=== PATIENT | female | born 1935 | race Caucasian/White ===

== ENCOUNTER 2019-11-13 00:46 | Observation (INO) | payer MEDICARE, BC ==
[2019-11-13] MEDS: Sodium Chloride 0.9% 10 ML Syringe FLUSH PRN ×3 (01:20→04:00)
[2019-11-13] MEDS ORDERED: Sodium Chloride 0.9% 500 ML IV ONE (01:39)
[2019-11-13] MEDS ORDERED: HYDROmorphone 2 MG/ML SDV IVPUSH ONE (01:39)
[2019-11-13] MEDS ORDERED: Ondansetron 4 MG/2 ML SDV IVPUSH ONE ×2 (01:40→03:16)
--- NOTE | 2019-11-13 01:45 | EDM.PDOC ---
ED HPI GENERAL MEDICAL PROBLEM - General Chief Complaint: Abdominal Pain Stated Complaint: STOMACH PAIN Time Seen by Provider: 11/13/19 01:40 Source of Information: Reports: Patient History Limitations: Reports: No Limitations - History of Present Illness INITIAL COMMENTS - FREE TEXT/NARRATIVE: Presents with abdominal pain and nausea x 3 days. Pain is mainly localized to the LLQ but present diffusely. She has had some diarrhea. Similar symptoms annually due diverticulitis. Prior surgical history includes Appendectomy and Cholecystectomy. Also complains headache, fatigue, neck pain, and muscle aches. The patient lives alone. Duration: Day(s): (3) Location: Reports: Abdomen Quality: Reports: Ache Severity: Moderate Abdomen Pain Score (Numeric/FACES): 8 - Related Data Allergies Allergy/AdvReac Type Severity Reaction Status Date / Time pneumococcal vaccine Allergy Hives Verified 11/13/19 01:15 [Pneumococcal Vaccine] Home Meds: Home Meds Diphenoxylate HCl/Atropine [Lomotil] 1 each PO QID PRN 11/02/13 [History] Zolpidem Tartrate 5 mg PO BEDTIME PRN 11/13/19 [History] predniSONE [Prednisone] 20 mg PO DAILY 11/13/19 [History] Past Medical History HEENT History: Reports: Cataract, Impaired Vision Cardiovascular History: Reports: High Cholesterol Gastrointestinal History: Reports: Diverticulosis, GERD, Irritable Bowel Syndrome Musculoskeletal History: Reports: Fibromyalgia, Other (See Below) Other Musculoskeletal History: Polymyalgia rheumatica - Past Surgical History HEENT Surgical History: Reports: Cataract Surgery GI Surgical History: Reports: Appendectomy, Cholecystectomy, Colonoscopy Social & Family History - Tobacco Use Smoking Status *Q: Never Smoker - Caffeine Use Caffeine Use: Reports: Coffee - Recreational Drug Use Recreational Drug Use: No ED ROS GENERAL - Review of Systems Review Of Systems: Comprehensive ROS is negative, except as noted in HPI. ED EXAM, GI/ABD - Physical Exam Exam: See Below Exam Limited By: No Limitations General Appearance: Alert, WD/WN, No Apparent Distress Eyes: Bilateral: EOMI (PERRLA 3mm) Nose: Normal Inspection Throat/Mouth: No Airway Compromise Head: Atraumatic, Normocephalic Neck: Supple Respiratory/Chest: No Respiratory Distress, Lungs Clear, Normal Breath Sounds Cardiovascular: Regular Rate, Rhythm, No Murmur GI/Abdominal Exam: Normal Bowel Sounds, Soft, No Distention, Guarding, Tender (LLQ) Back Exam: Full Range of Motion Neurological: Alert, Normal Cognition, No Motor/Sensory Deficits Skin Exam: Warm, Dry, Intact Course - Vital Signs Last Recorded V/S: Last Vital Signs Temp 36.6 C 11/13/19 00:55 Pulse 73 11/13/19 02:11 Resp 16 11/13/19 02:11 BP 114/48 L 11/13/19 02:11 Pulse Ox 95 11/13/19 02:11 - Orders/Labs/Meds Orders: Active Orders 24 hr Category Date Time Status Admission Status [Patient Status] [ADT] Routine ADT 11/13/19 03:21 Ordered Abdomen Pelvis w Cont [CT] Stat Exams 11/13/19 02:07 Taken UA W/MICROSCOPIC [URIN] Stat Lab 11/13/19 01:38 Ordered Piperacillin/Tazobactam [Zosyn] 3.375 gm Med 11/13/19 03:17 Active Sodium Chloride 0.9% [Normal Saline] 50 ml IV ONETIME Sodium Chloride 0.9% [Saline Flush] Med 11/13/19 01:20 Active 10 ml FLUSH ASDIRECTED PRN Medication Orders Piperacillin Sod/Tazobactam (Sod 3.375 gm/ Sodium Chloride) 50 mls @ 100 mls/hr IV ONETIME ONE Stop: 11/13/19 03:46 Sodium Chloride (Saline Flush) 10 ml FLUSH ASDIRECTED PRN PRN Reason: IV Use Last Admin: 11/13/19 01:20 Dose: 10 ml Documented by: CATE Labs: Laboratory Tests 11/13/19 11/13/19 11/13/19 Range/Units 01:48 01:48 01:48 WBC 12.5 H (4.5-12.0) X10-3/uL RBC 4.40 (3.23-5.20) x10(6)uL Hgb 13.0 (11.5-15.5) g/dL Hct 40.2 (30.0-51.3) % MCV 91.5 (80-96) fL MCH 29.6 (27.7-33.6) pg MCHC 32.4 (32.2-35.4) g/dL RDW 13.4 (11.5-15.5) % Plt Count 260 (125-369) X10(3)uL MPV 7.0 L (7.4-10.4) fL Neut % (Auto) 82.6 H (46-82) % Lymph % (Auto) 10.5 L (13-37) % Coffee % (Auto) 6.1 (4-12) % Eos % (Auto) 1 (1.0-5.0) % Baso % (Auto) 0 (0-2) % Neut # (Auto) 10.3 H (1.6-8.3) # Lymph # (Auto) 1.3 (0.6-5.0) # [place] # (Auto) 0.8 (0.0-1.3) # Eos # (Auto) 0.1 (0.0-0.8) # Baso # (Auto) 0.0 (0.0-0.2) # Sodium 137 (135-145) mmol/L Potassium 3.8 (3.5-5.3) mmol/L Chloride 102 (100-110) mmol/L Carbon Dioxide 29 (21-32) mmol/L BUN 15 (7-18) mg/dL Creatinine 1.0 (0.55-1.02) mg/dL Est Cr Clr Drug Dosing 33.88 mL/min Estimated GFR (MDRD) 53 L (>60) BUN/Creatinine Ratio 15.0 (9-20) Glucose 95 (80-116) mg/dL Calcium 8.7 (8.6-10.2) mg/dL Total Bilirubin 1.2 (0.1-1.3) mg/dL AST 15 (5-25) IU/L ALT 16 (12-36) U/L Alkaline Phosphatase 45 L (56-112) IU/L Total Protein 6.1 (6.0-8.0) g/dL Albumin 3.1 L (3.2-4.6) g/dL Globulin 3.0 g/dL Albumin/Globulin Ratio 1.0 Lipase 106 (73-393) U/L Meds: Medications Generic Name Dose Route Start Last Admin Trade Name Freq PRN Reason Stop Dose Admin Piperacillin Sod/Tazobactam 50 mls @ 100 mls/hr 11/13/19 03:17 Sod 3.375 gm/ Sodium Chloride IV 11/13/19 03:46 ONETIME ONE Sodium Chloride 10 ml 11/13/19 01:20 11/13/19 01:20 Saline Flush FLUSH 10 ml ASDIRECTED PRN Administration IV Use Discontinued Medications Generic Name Dose Route Start Last Admin Trade Name Dimitri PRN Reason Stop Dose Admin Hydromorphone HCl 0.5 mg 11/13/19 01:39 11/13/19 01:46 Dilaudid IVPUSH 11/13/19 01:40 0.5 mg ONETIME ONE Administration Sodium Chloride 500 mls @ 500 mls/hr 11/13/19 01:39 11/13/19 01:41 Normal Saline IV 11/13/19 02:38 500 mls/hr .BOLUS ONE Administration Iopamidol 75 ml 11/13/19 02:25 11/13/19 02:43 Isovue-370 (76%) IV 11/13/19 02:26 75 ml . DIRECTED ONE Administration Ondansetron HCl 4 mg 11/13/19 01:40 11/13/19 01:45 Zofran IVPUSH 11/13/19 01:41 4 mg ONETIME ONE Administration Ondansetron HCl 4 mg 11/13/19 03:16 Zofran IVPUSH 11/13/19 03:17 ONETIME ONE - Radiology Interpretation Free Text/Narrative:: CT abdomen and pelvis acquired with IV contrast. 75 cc Isovue 370 COMPARISON: None FINDINGS: Lower chest: Unremarkable. Liver: Unremarkable. Spleen: Unremarkable. Pancreas: Unremarkable. Gallbladder and bile ducts: Cholecystectomy. Inter and extrahepatic biliary ductal dilatation most likely related to reservoir effect. Kidneys: Unremarkable. Adrenal glands: Unremarkable. GI tract: Mild thickening and minimal pericolonic fat stranding adjacent to the distal descending colon worrisome for diverticulitis. Vascular structures: Unremarkable. Lymph nodes: Unremarkable. Miscellaneous: Unremarkable. No free air or significant free fluid. Pelvic Organs: Unremarkable. Bones: Unremarkable for age. IMPRESSION: Mild thickening and minimal pericolonic fat stranding adjacent to the distal descending colon worrisome for diverticulitis. Dictated by Reece Montanez MD @ 11/13/2019 2:59:40 AM Please note that all CT scans at this facility use dose modulation, iterative reconstruction, and/or weight-based dosing when appropriate to reduce radiation dose to as low as reasonably achievable. Dictated by: Reece Montanez MD @ 11/13/2019 02:59:48 - Re-Assessments/Exams Free Text/Narrative Re-Assessment/Exam: 11/13/19 03:22 Pain has improved, nausea persists. Departure - Departure Time of Disposition: 03:24 Disposition: Refer to Observation Condition: Fair Clinical Impression: Diverticulitis - Discharge Information Referrals: Baron Quiñones MD [Primary Care Provider] - Forms: ED Department Discharge Sepsis Event Note (ED) - Evaluation Sepsis Screening Result: No Definite Risk - Focused Exam Vital Signs: Vital Signs Temp Pulse Resp BP Pulse Ox 11/13/19 02:11 73 16 114/48 L 95 11/13/19 01:44 76 18 132/52 L 98 11/13/19 00:55 36.6 C 89 20 104/53 L 99 - My Orders Last 24 Hours: My Active Orders 11/13/19 01:20 Sodium Chloride 0.9% [Saline Flush] 10 ml FLUSH ASDIRECTED PRN 11/13/19 01:38 UA W/MICROSCOPIC [URIN] Stat 11/13/19 02:07 Abdomen Pelvis w Cont [CT] Stat 11/13/19 03:17 Piperacillin/Tazobactam [Zosyn] 3.375 gm Sodium Chloride 0.9% [Normal Saline] 50 ml IV ONETIME 11/13/19 03:21 Admission Status [Patient Status] [ADT] Routine - Assessment/Plan Last 24 Hours: My Active Orders 11/13/19 01:20 Sodium Chloride 0.9% [Saline Flush] 10 ml FLUSH ASDIRECTED PRN 11/13/19 01:38 UA W/MICROSCOPIC [URIN] Stat 11/13/19 02:07 Abdomen Pelvis w Cont [CT] Stat 11/13/19 03:17 Piperacillin/Tazobactam [Zosyn] 3.375 gm Sodium Chloride 0.9% [Normal Saline] 50 ml IV ONETIME 11/13/19 03:21 Admission Status [Patient Status] [ADT] Routine
[2019-11-13] MEDS ORDERED: Iopamidol 755 Mg/ML 100 ML Bottle IV ONE (02:25)
[2019-11-13] MEDS ORDERED: Piperacillin/Tazobactam 3.375 GM in Sodium Chloride 0.9% 50 ML IV ONE (03:17)
[2019-11-13] MEDS: Sodium Chloride 0.9% 1,000 ML IV SCH ×2 (04:54→16:52)
[2019-11-13] MEDS ORDERED: HYDROmorphone 2 MG/ML SDV IVPUSH PRN (05:30)
[2019-11-13] MEDS ORDERED: Piperacillin/Tazobactam 3.375 GM in Sodium Chloride 0.9% 50 ML IV SCH (09:00)
[2019-11-13] MEDS: predniSONE 20 MG Tab PO SCH (09:17)
[2019-11-13] MEDS: Enoxaparin 40 MG/0.4 ML Syringe SUBCUT SCH (09:17)
[2019-11-13] MEDS: Pantoprazole 40 MG Vial IVPUSH SCH (09:18)
[2019-11-13] MEDS: Piperacillin/Tazobactam 2.25 GM in Sodium Chloride 0.9% 50 ML IV SCH ×3 (09:18→20:47)
[2019-11-13] MEDS ORDERED: Ondansetron 4 MG/2 ML SDV IV PRN (09:30)
[2019-11-13] MEDS ORDERED: hydrOXYzine HCl 25 MG Tab PO PRN (09:34)
--- NOTE | 2019-11-13 13:40 | PCM.HP.2 ---
H&P History of Present Illness - General Date of Service: 11/13/19 Admit Problem/Dx: Admission Diagnosis/Problem Admission Diagnosis/Problem Diverticulitis Source of Information: Patient, EMS Notes Reviewed - History of Present Illness Initial Comments - Free Text/Narative: Radha presented overnight for 3 day history of LLQ abdominal pain, and nausea, but denies vomiting, diarrhea. States she tends to be constipated. History of Diverticulitis annually, usually when she is in [place] for the [facility], has never had an abscess as far as she is aware. She did have surgery once where they "rearranged her intestines" but states they didn't take anything out. Hx of appendectomy and cholecystectomy. No fevers, chills, cough, shortness of breath, chest pain, dysuria, frequency, hematuria or bloody/black stools. 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 Insomnia on Melatonin, Magnesium and Zolpidem but states not helping. Lives alone in her own home in [place]. Abdomen Pain Score (Numeric/FACES): 2 - Related Data Allergies/Adverse Reactions: Allergies Allergy/AdvReac Type Severity Reaction Status Date / Time pneumococcal vaccine Allergy Hives Verified 11/13/19 01:15 [Pneumococcal Vaccine] Home Medications: Home Meds Magnesium Oxide 400 mg PO BEDTIME 11/13/19 [History] Melatonin 10 mg PO BEDTIME 11/13/19 [History] Zolpidem Tartrate 5 mg PO BEDTIME PRN 11/13/19 [History] predniSONE [Prednisone] 20 mg PO DAILY 11/13/19 [History] Past Medical History HEENT History: Reports: Cataract, Impaired Vision Cardiovascular History: Reports: High Cholesterol Gastrointestinal History: Reports: Diverticulosis, GERD, Irritable Bowel Syndrome Musculoskeletal History: Reports: Fibromyalgia, Other (See Below) Other Musculoskeletal History: Polymyalgia rheumatica - Past Surgical History HEENT Surgical History: Reports: Cataract Surgery GI Surgical History: Reports: Appendectomy, Cholecystectomy, Colonoscopy Social & Family History - Family History Family Medical History: Noncontributory - Tobacco Use Smoking Status *Q: Never Smoker Second Hand Smoke Exposure: No - Caffeine Use Caffeine Use: Reports: Coffee - Recreational Drug Use Recreational Drug Use: No H&P Review of Systems - Review of Systems: Review Of Systems: Comprehensive ROS is negative, except as noted in HPI. Exam - Exam Exam: See Below - Vital Signs Vital Signs: Last Vital Signs Temp 97.9 F 11/13/19 08:00 Pulse 74 11/13/19 08:00 Resp 16 11/13/19 08:00 BP 117/59 L 11/13/19 08:00 Pulse Ox 99 11/13/19 08:00 Weight: 145 lb 1.6 oz - Exam General: Alert, Oriented, Cooperative. No: Mild Distress HEENT: PERRLA, Conjunctiva Clear, Mucosa Moist & Platinum, Glasses Neck: Trachea Midline Lungs: Clear to Auscultation, Normal Respiratory Effort Cardiovascular: Regular Rate, Regular Rhythm GI/Abdominal Exam: Normal Bowel Sounds, Soft, Non-Tender, No Distention. No: Guarding, Rigid, Rebound (Female) Exam: Deferred Rectal (Female) Exam: Deferred Extremities: No Pedal Edema Peripheral Pulses: 2+: Radial (L), Radial (R) Skin: Warm, Dry, Intact - Patient Data Lab Results Last 24 hrs: Laboratory Results - last 24 hr 11/13/19 11/13/19 11/13/19 Range/Units 01:48 01:48 01:48 WBC 12.5 H (4.5-12.0) X10-3/uL RBC 4.40 (3.23-5.20) x10(6)uL Hgb 13.0 (11.5-15.5) g/dL Hct 40.2 (30.0-51.3) % MCV 91.5 (80-96) fL MCH 29.6 (27.7-33.6) pg MCHC 32.4 (32.2-35.4) g/dL RDW 13.4 (11.5-15.5) % Plt Count 260 (125-369) X10(3)uL MPV 7.0 L (7.4-10.4) fL Neut % (Auto) 82.6 H (46-82) % Lymph % (Auto) 10.5 L (13-37) % [place] % (Auto) 6.1 (4-12) % Eos % (Auto) 1 (1.0-5.0) % Baso % (Auto) 0 (0-2) % Neut # (Auto) 10.3 H (1.6-8.3) # Lymph # (Auto) 1.3 (0.6-5.0) # [place] # (Auto) 0.8 (0.0-1.3) # Eos # (Auto) 0.1 (0.0-0.8) # Baso # (Auto) 0.0 (0.0-0.2) # Sodium 137 (135-145) mmol/L Potassium 3.8 (3.5-5.3) mmol/L Chloride 102 (100-110) mmol/L Carbon Dioxide 29 (21-32) mmol/L BUN 15 (7-18) mg/dL Creatinine 1.0 (0.55-1.02) mg/dL Est Cr Clr Drug Dosing 33.88 mL/min Estimated GFR (MDRD) 53 L (>60) BUN/Creatinine Ratio 15.0 (9-20) Glucose 95 (80-116) mg/dL Calcium 8.7 (8.6-10.2) mg/dL Total Bilirubin 1.2 (0.1-1.3) mg/dL AST 15 (5-25) IU/L ALT 16 (12-36) U/L Alkaline Phosphatase 45 L (56-112) IU/L Total Protein 6.1 (6.0-8.0) g/dL Albumin 3.1 L (3.2-4.6) g/dL Globulin 3.0 g/dL Albumin/Globulin Ratio 1.0 Lipase 106 (73-393) U/L Urine Color (YELLOW) Urine Appearance (CLEAR) Urine pH (5.0-6.5) Ur Specific [place] (1.010-1.025) Urine Protein (NEGATIVE) mg/dL Urine Glucose (UA) (NORMAL) mg/dL Urine Ketones (NEGATIVE) mg/dL Urine Occult Blood (NEGATIVE) Urine Nitrite (NEGATIVE) Urine Bilirubin (NEGATIVE) Urine Urobilinogen (NEGATIVE) mg/dL Ur Leukocyte Esterase (NEGATIVE) Urine RBC (0-5) Urine WBC (0-5) Ur Squamous Epith Cells (NS,R,O) Urine Bacteria (NS) 11/13/19 Range/Units 08:09 WBC (4.5-12.0) X10-3/uL RBC (3.23-5.20) x10(6)uL Hgb (11.5-15.5) g/dL Hct (30.0-51.3) % MCV (80-96) fL MCH (27.7-33.6) pg MCHC (32.2-35.4) g/dL RDW (11.5-15.5) % Plt Count (125-369) X10(3)uL MPV (7.4-10.4) fL Neut % (Auto) (46-82) % Lymph % (Auto) (13-37) % [place] % (Auto) (4-12) % Eos % (Auto) (1.0-5.0) % Baso % (Auto) (0-2) % Neut # (Auto) (1.6-8.3) # Lymph # (Auto) (0.6-5.0) # [place] # (Auto) (0.0-1.3) # Eos # (Auto) (0.0-0.8) # Baso # (Auto) (0.0-0.2) # Sodium (135-145) mmol/L Potassium (3.5-5.3) mmol/L Chloride (100-110) mmol/L Carbon Dioxide (21-32) mmol/L BUN (7-18) mg/dL Creatinine (0.55-1.02) mg/dL Est Cr Clr Drug Dosing mL/min Estimated GFR (MDRD) (>60) BUN/Creatinine Ratio (9-20) Glucose (80-116) mg/dL Calcium (8.6-10.2) mg/dL Total Bilirubin (0.1-1.3) mg/dL AST (5-25) IU/L ALT (12-36) U/L Alkaline Phosphatase (56-112) IU/L Total Protein (6.0-8.0) g/dL Albumin (3.2-4.6) g/dL Globulin g/dL Albumin/Globulin Ratio Lipase (73-393) U/L Urine Color Yellow (YELLOW) Urine Appearance Clear (CLEAR) Urine pH 6.5 (5.0-6.5) Ur Specific [place] 1.015 (1.010-1.025) Urine Protein Trace (NEGATIVE) mg/dL Urine Glucose (UA) Normal (NORMAL) mg/dL Urine Ketones 15 H (NEGATIVE) mg/dL Urine Occult Blood Moderate H (NEGATIVE) Urine Nitrite Negative (NEGATIVE) Urine Bilirubin Negative (NEGATIVE) Urine Urobilinogen Normal (NEGATIVE) mg/dL Ur Leukocyte Esterase Small H (NEGATIVE) Urine RBC 5-10 H (0-5) Urine WBC 0-5 (0-5) Ur Squamous Epith Cells Few H (NS,R,O) Urine Bacteria Rare H (NS) Result Diagrams: 11/13/19 01:48 11/13/19 01:48 Sepsis Event Note - Evaluation Sepsis Screening Result: No Definite Risk - Focused Exam Vital Signs: Vital Signs Temp Pulse Resp BP Pulse Ox Pulse Ox 11/13/19 08:00 97.9 F 74 16 117/59 L 99 11/13/19 03:47 97.6 F 74 16 112/51 L 97 11/13/19 03:45 97.6 F 74 16 112/51 L 97 11/13/19 03:28 97 11/13/19 02:11 73 16 114/48 L 95 11/13/19 01:44 76 18 132/52 L 98 Date Exam was Performed: 11/13/19 Time Exam was Performed: 13:49 *Q Meaningful Use (ADM) - VTE Risk Assess *Q Each Risk Factor Represents 3 Points: Age 75 Years or Greater Total Score 3 Point Risk Factors: 3 - Problem List (1) Diverticulitis SNOMED Code(s): 901164454 ICD Code: K57.92 - DVTRCLI OF INTEST, PART UNSP, W/O PERF OR ABSCESS W/O BLEED Status: Acute Current Visit: Yes (2) Polymyalgia rheumatica SNOMED Code(s): 40910308 ICD Code: M35.3 - POLYMYALGIA RHEUMATICA Status: Chronic Current Visit: Yes (3) Insomnia SNOMED Code(s): 868963762 ICD Code: G47.00 - INSOMNIA, UNSPECIFIED Status: Chronic Current Visit: Yes (4) Cystocele SNOMED Code(s): 302726303 ICD Code: [id number] - Status: Chronic Current Visit: Yes (5) DVT prophylaxis SNOMED Code(s): 767547376, 583756484 ICD Code: Z29.9 - ENCOUNTER FOR PROPHYLACTIC MEASURES, UNSPECIFIED Status: Acute Current Visit: Yes Problem List Initiated/Reviewed/Updated: Yes Orders Last 24hrs: Active Orders 24 hr Category Date Time Status Admission Status [Patient Status] [ADT] Routine ADT 11/13/19 03:21 Active Ambulate [RC] PER UNIT ROUTINE Care 11/13/19 03:29 Active Antiembolic Devices [RC] .Routine Care 11/13/19 08:15 Active Height and Weight [RC] 06 Care 11/13/19 03:28 Active Intake and Output [RC] QSHIFT Care 11/13/19 03:29 Active Notify Provider Vital Signs [RC] ASDIRECTED Care 11/13/19 03:29 Active Oxygen Therapy [RC] .PRN Care 11/13/19 03:28 Active VTE/DVT Education [RC] 08 Care 11/13/19 03:28 Active Vital Signs [RC] QSHIFT Care 11/13/19 03:28 Active Full Liquid Diet [DIET] Diet 11/13/19 Breakfast Active Abdomen Pelvis w Cont [CT] Stat Exams 11/13/19 02:07 Taken BASIC METABOLIC PANEL,BMP [CHEM] Routine Lab 11/14/19 06:00 Ordered CBC WITH AUTO DIFF [HEME] Routine Lab 11/14/19 06:00 Ordered Enoxaparin [Lovenox] Med 11/13/19 09:00 Active 40 mg SUBCUT DAILY HYDROmorphone [Dilaudid] Med 11/13/19 05:30 Active 0.5 mg IVPUSH Q4H PRN Magnesium Oxide Med 11/13/19 21:00 Active 400 mg PO BEDTIME Melatonin Med 11/13/19 21:00 Active 9 mg PO BEDTIME Ondansetron [Zofran] Med 11/13/19 09:30 Active 4 mg IV Q8H PRN Pantoprazole [ProTONIX IV] Med 11/13/19 09:00 Active 40 mg IVPUSH DAILY Piperacillin/Tazobactam [Zosyn] 2.25 gm Med 11/13/19 09:00 Active Sodium Chloride 0.9% [Normal Saline] 50 ml IV Q6H Saccharomyces Boulardii [Florastor] Med 11/13/19 21:00 Active 250 mg PO BID Sodium Chloride 0.9% [Normal Saline] 1,000 ml Med 11/13/19 03:30 Active IV ASDIRECTED Sodium Chloride 0.9% [Saline Flush] Med 11/13/19 01:20 Active 10 ml FLUSH ASDIRECTED PRN hydrOXYzine HCL [Atarax] Med 11/13/19 21:00 Active 25 mg PO BEDTIME hydrOXYzine HCL [Atarax] Med 11/13/19 09:34 Active 25 mg PO BEDTIME PRN predniSONE Med 11/13/19 09:00 Active 20 mg PO DAILY Antiembolic Hose [OM.PC] Routine Oth 11/13/19 08:15 Ordered Resuscitation Status Routine Resus Stat 11/13/19 03:28 Ordered Medication Orders Enoxaparin Sodium (Lovenox) 40 mg SUBCUT DAILY [facility] Last Admin: 11/13/19 09:17 Dose: 40 mg Documented by: DAVIDE Hydromorphone HCl (Dilaudid) 0.5 mg IVPUSH Q4H PRN PRN Reason: Pain (severe 7-10) Hydroxyzine HCl (Atarax) 25 mg PO BEDTIME FELIPA Hydroxyzine HCl (Atarax) 25 mg PO BEDTIME PRN PRN Reason: SLEEP Sodium Chloride (Normal Saline) 1,000 mls @ 100 mls/hr IV ASDIRECTED [facility] Last Admin: 11/13/19 04:54 Dose: 100 mls/hr Documented by: SVTELANA Piperacillin Sod/Tazobactam (Sod 2.25 gm/ Sodium Chloride) 50 mls @ 100 mls/hr IV Q6H [facility] Last Admin: 11/13/19 09:18 Dose: 100 mls/hr Documented by: DAVIDE Magnesium Oxide (Magnesium Oxide) 400 mg PO BEDTIME [facility] Melatonin (Melatonin) 9 mg PO BEDTIME FELIPA Ondansetron HCl (Zofran) 4 mg IV Q8H PRN PRN Reason: Nausea/Vomiting Pantoprazole Sodium (Protonix Iv) 40 mg IVPUSH DAILY [facility] Last Admin: 11/13/19 09:18 Dose: 40 mg Documented by: DAVIDE Prednisone (Prednisone) 20 mg PO DAILY [facility] Last Admin: 11/13/19 09:17 Dose: 20 mg Documented by: DAVIDE Saccharomyces Boulardii (Florastor) 250 mg PO BID [facility] Sodium Chloride (Saline Flush) 10 ml FLUSH ASDIRECTED PRN PRN Reason: IV Use Last Admin: 11/13/19 04:00 Dose: 10 ml Documented by: Admin: 11/13/19 03:22 Dose: 10 ml Documented by: Admin: 07/31/20 01:20 Dose: 10 ml Documented by: CATE Assessment/Plan Comment:: 1. Admit for IV Zosyn 2.275 g IV q6h, repeat labs tomorrow. Pain improved this morning. 2. Hydroxyzine 25 mg po hs, with 25 mg po hs as needed if still not sleeping. Continue Melatonin, Magnesium. Hold Zolpidem since she states doesn't really help her. 3. Regular diet, advance as tolerated. 4. Lovenox 40 mg SQ daily, TEDs BLE. 5. DNR/DNI. 6. Adjust treatments as necessary. 7. Continue home medication, prednisone. - Mortality Measure Prognosis:: Good
[2019-11-13] MEDS: Saccharomyces Boulardii (Probiotic) 250 MG Cap PO SCH (20:47)
[2019-11-13] MEDS ORDERED: Magnesium Oxide 400 MG Tab PO SCH (21:00)
[2019-11-13] MEDS ORDERED: hydrOXYzine HCl 25 MG Tab PO SCH (21:00)
[2019-11-13] MEDS ORDERED: Melatonin 3 MG Tab PO SCH (21:00)
[2019-11-14] MEDS: Piperacillin/Tazobactam 2.25 GM in Sodium Chloride 0.9% 50 ML IV SCH ×2 (03:14→09:00)
[2019-11-14] MEDS: Sodium Chloride 0.9% 1,000 ML IV SCH (04:11)
[2019-11-14] MEDS: Saccharomyces Boulardii (Probiotic) 250 MG Cap PO SCH (08:48)
[2019-11-14] MEDS: Pantoprazole 40 MG Vial IVPUSH SCH (08:49)
[2019-11-14] MEDS: Enoxaparin 40 MG/0.4 ML Syringe SUBCUT SCH (08:49)
[2019-11-14] MEDS: predniSONE 20 MG Tab PO SCH (08:49)
--- NOTE | 2019-11-14 12:33 | PCM.DCSUM1 ---
Discharge Summary - Hospital Course HPI Initial Comments: Radha presented overnight for 3 day history of LLQ abdominal pain, and nausea, but denies vomiting, diarrhea. States she tends to be constipated. History of Diverticulitis annually, usually when she is in [place] for the winter, has never had an abscess as far as she is aware. She did have surgery once where they "rearranged her intestines" but states they didn't take anything out. Hx of appendectomy and cholecystectomy. No fevers, chills, cough, shortness of breath, chest pain, dysuria, frequency, hematuria or bloody/black stools. 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 Insomnia on Melatonin, Magnesium and Zolpidem but states not helping. Lives alone in her own home in [place]. - Discharge Data Discharge Date: 11/14/19 Discharge Disposition: Home, Self-Care 01 Condition: Good - Referral to Home Health Primary Care Physician: Baron Quiñones MD - Discharge Diagnosis/Problem(s) (1) Diverticulitis SNOMED Code(s): 012495909 ICD Code: K57.92 - DVTRCLI OF INTEST, PART UNSP, W/O PERF OR ABSCESS W/O B LEED Status: Acute (2) Polymyalgia rheumatica SNOMED Code(s): 21456403 ICD Code: M35.3 - POLYMYALGIA RHEUMATICA Status: Chronic (3) Insomnia SNOMED Code(s): 268700057 ICD Code: G47.00 - INSOMNIA, UNSPECIFIED Status: Chronic (4) Cystocele SNOMED Code(s): 433267556 ICD Code: HZN3684 - Status: Chronic (5) DVT prophylaxis SNOMED Code(s): 172699026, 853657037 ICD Code: Z29.9 - ENCOUNTER FOR PROPHYLACTIC MEASURES, UNSPECIFIED Status: Acute - Patient Summary/Data Hospital Course: Started on Zosyn, received 6 doses during her stay, Florastor was also added. WBC improved from 12.5 down to 6.8, clinically feeling better. Diet was advanced from full liquids to regular yesterday, tolerated with no increased pain or nausea. Zolpidem was discontinued as she stated it really wasn't work for her anymore. Started Hydroxyzine 25 mg at bedtime, slept well last night, had dry mouth but she wasn't sure if that was new or not. Not feeling groggy or hungover this morning, which she stated she has with Zolpidem. Will send home with 14 days of Hydroxyzine and follow up with her PCP on how her sleep is on this medication. Will go home on Augmentin bid for 9 more days of treatment for Diverticulitis. Discharged in stable condition. - Patient Instructions Diet: Regular Diet as Tolerated Activity: As Tolerated Driving: May Drive Today Showering/Bathing: May Shower Notify Provider of: Fever, Increased Pain, Nausea and/or Vomiting Other/Special Instructions: Follow up with Dr Quiñones in 7-10 days to make sure diverticulitis is resolved and to reassess how well the new sleep med ication, Hydroxyzine is working for you. Zolpidem was discontinued. - Discharge Plan *PRESCRIPTION DRUG MONITORING PROGRAM REVIEWED*: No *COPY OF PRESCRIPTION DRUG MONITORING REPORT IN PATIENT JAIME: No Prescriptions/Med Rec: Amoxicillin/Clavulanate K [Augmentin 875-125 MG] 1 tab PO BID 9 Days #18 tablet Saccharomyces Boulardii [Florastor] 250 mg PO BID 30 Days #60 cap hydrOXYzine HCL [hydrOXYzine] 25 mg PO BEDTIME 14 Days #14 tablet Home Medications: Home Meds Magnesium Oxide 400 mg PO BEDTIME 11/13/19 [History] Melatonin 10 mg PO BEDTIME 11/13/19 [History] predniSONE [Prednisone] 20 mg PO DAILY 11/13/19 [History] Amoxicillin/Clavulanate K [Augmentin 875-125 MG] 1 tab PO BID 9 Days #18 tablet 11/14/19 [Rx] Saccharomyces Boulardii [Florastor] 250 mg PO BID 30 Days #60 cap 11/14/19 [Rx] hydrOXYzine HCL [hydrOXYzine] 25 mg PO BEDTIME 14 Days #14 tablet 11/14/19 [Rx] Oxygen Therapy Mode: Room Air Patient Handouts: Diverticulitis, [id number], Diverticulitis Forms: ED Department Discharge Referrals: Braon Quiñones MD [Primary Care Provider] - - Discharge Summary/Plan Comment DC Time >30 min.: No - General Info Date of Service: 11/14/19 Subjective Update: Radha states she is feeling much better, no pain in left side today. Ate regular diet last night and this morning with no increased pain or nausea. No fevers overnight, would like to go home. Functional Status: Reports: Pain Controlled, Tolerating Diet, Ambulating - Patient Data Vitals - Most Recent: Last Vital Signs Temp 97.4 F 11/14/19 08:00 Pulse 70 11/14/19 08:00 Resp 16 11/14/19 08:00 BP 121/62 11/14/19 08:00 Pulse Ox 98 11/14/19 08:00 Weight - Most Recent: 149 lb 3.2 oz I&O - Last 24 hours: Intake & Output 11/13/19 11/14/19 11/14/19 22:59 06:59 14:59 Intake Total 3225 857 Output Total 800 700 Balance 2425 157 Lab Results - Last 24 hrs: Laboratory Results - last 24 hr 11/14/19 11/14/19 Range/Units 06:25 06:25 WBC 6.8 (4.5-12.0) X10-3/uL RBC 3.61 (3.23-5.20) x10(6)uL Hgb 10.9 L (11.5-15.5) g/dL Hct 32.9 (30.0-51.3) % MCV 91.1 (80-96) fL MCH 30.4 (27.7-33.6) pg MCHC 33.3 (32.2-35.4) g/dL RDW 13.5 (11.5-15.5) % Plt Count 198 (125-369) X10(3)uL MPV 7.4 (7.4-10.4) fL Neut % (Auto) 68.4 (46-82) % Lymph % (Auto) 20.6 (13-37) % [place] % (Auto) 9.2 (4-12) % Eos % (Auto) 1 (1.0-5.0) % Baso % (Auto) 0 (0-2) % Neut # (Auto) 4.7 (1.6-8.3) # Lymph # (Auto) 1.4 (0.6-5.0) # [place] # (Auto) 0.6 (0.0-1.3) # Eos # (Auto) 0.1 (0.0-0.8) # Baso # (Auto) 0.0 (0.0-0.2) # Sodium 141 (135-145) mmol/L Potassium 3.7 (3.5-5.3) mmol/L Chloride 109 D (100-110) mmol/L Carbon Dioxide 26 (21-32) mmol/L BUN 10 (7-18) mg/dL Creatinine 1.0 (0.55-1.02) mg/dL Est Cr Clr Drug Dosing 33.88 mL/min Estimated GFR (MDRD) 53 L (>60) BUN/Creatinine Ratio 10.0 (9-20) Glucose 84 (80-116) mg/dL Calcium 8.1 L (8.6-10.2) mg/dL Med Orders - Current: Current Medications Discontinued Medications Enoxaparin Sodium (Lovenox) 40 mg SUBCUT DAILY [facility] Last Admin: 11/14/19 08:49 Dose: 40 mg Documented by: Hydromorphone HCl (Dilaudid) 0.5 mg IVPUSH ONETIME ONE Stop: 11/13/19 01:40 Last Admin: 11/13/19 01:46 Dose: 0.5 mg Documented by: Hydromorphone HCl (Dilaudid) 0.5 mg IVPUSH Q4H PRN PRN Reason: Pain (severe 7-10) Hydroxyzine HCl (Atarax) 25 mg PO BEDTIME [facility] Last Admin: 11/13/19 20:47 Dose: 25 mg Documented by: Hydroxyzine HCl (Atarax) 25 mg PO BEDTIME PRN PRN Reason: SLEEP Sodium Chloride (Normal Saline) 500 mls @ 500 mls/hr IV .BOLUS ONE Stop: 11/13/19 02:38 Last Admin: 11/13/19 01:41 Dose: 500 mls/hr Documented by: Piperacillin Sod/Tazobactam (Sod 3.375 gm/ Sodium Chloride) 50 mls @ 100 mls/hr IV ONETIME ONE Stop: 11/13/19 03:46 Last Admin: 11/13/19 03:22 Dose: 100 mls/hr Documented by: Sodium Chloride (Normal Saline) 1,000 mls @ 100 mls/hr IV ASDIRECTED [facility] Last Admin: 11/14/19 04:11 Dose: 100 mls/hr Documented by: Piperacillin Sod/Tazobactam (Sod 3.375 gm/ Sodium Chloride) 50 mls @ 100 mls/hr IV Q6H [facility] Piperacillin Sod/Tazobactam (Sod 2.25 gm/ Sodium Chloride) 50 mls @ 100 mls/hr IV Q6H [facility] Last Admin: 11/14/19 09:00 Dose: 100 mls/hr Documented by: Iopamidol (Isovue-370 (76%)) 75 ml IV . DIRECTED ONE Stop: 11/13/19 02:26 Last Admin: 11/13/19 02:43 Dose: 75 ml Documented by: Magnesium Oxide (Magnesium Oxide) 400 mg PO BEDTIME [facility] Last Admin: 11/13/19 20:47 Dose: 400 mg Documented by: Melatonin (Melatonin) 9 mg PO BEDTIME [facility] Last Admin: 11/13/19 20:47 Dose: 9 mg Documented by: Ondansetron HCl (Zofran) 4 mg IVPUSH ONETIME ONE Stop: 11/13/19 01:41 Last Admin: 11/13/19 01:45 Dose: 4 mg Documented by: Ondansetron HCl (Zofran) 4 mg IVPUSH ONETIME ONE Stop: 11/13/19 03:17 Last Admin: 11/13/19 03:21 Dose: 4 mg Documented by: Ondansetron HCl (Zofran) 4 mg IV Q8H PRN PRN Reason: Nausea/Vomiting Pantoprazole Sodium (Protonix Iv) 40 mg IVPUSH DAILY [facility] Last Admin: 11/14/19 08:49 Dose: 40 mg Documented by: Prednisone (Prednisone) 20 mg PO DAILY [facility] Last Admin: 11/14/19 08:49 Dose: 20 mg Documented by: Saccharomyces Boulardii (Florastor) 250 mg PO BID [facility] Last Admin: 11/14/19 08:48 Dose: 250 mg Documented by: Sodium Chloride (Saline Flush) 10 ml FLUSH ASDIRECTED PRN PRN Reason: IV Use Last Admin: 11/13/19 04:00 Dose: 10 ml Documented by: - Exam General: Reports: Alert, Oriented, Cooperative, No Acute Distress Lungs: Reports: Clear to Auscultation, Normal Respiratory Effort Cardiovascular: Reports: Regular Rate, Regular Rhythm GI/Abdominal Exam: Normal Bowel Sounds, Soft, No Distention, Tender (Mild TTP in LLQ). No: Guarding, Rigid, Rebound Extremities: No Pedal Edema
== END 2019-11-14 11:40 | disposition home or self-care (01) ==
LOC: FB.ED 00:46 → FB.MS 03:26
PROVIDERS: ADMIT Emergency Medicine; ATTEND Family Medicine
DX: K57.92 Diverticulitis of intestine, part unspecified, without perforation or abscess without bleeding (principal); K21.9 Gastro-esophageal reflux disease without esophagitis; M35.3 Polymyalgia rheumatica; G47.00 Insomnia, unspecified; E78.00 Pure hypercholesterolemia, unspecified; N81.10 Cystocele, unspecified; Z66 Do not resuscitate; Z88.7 Allergy status to serum and vaccine; Z79.899 Other long term (current) drug therapy
CPT/HCPCS: 36415; 74177; 80048; 80053; 81001; 83690; 85025; 96361; 96374; 96375; 96376; 99285; A9270; C9113; J1170; J1650; J2405; J2543; J7030; J7040; J7050; J7512; Q9967; 96365; 96366; 96372; 99284; G0378

== ENCOUNTER 2020-07-15 12:49 | Inpatient (IN) | payer MEDICARE, BC ==
[2020-07-15] MEDS ORDERED: Sodium Chloride 0.9% 1,000 ML IV ONE ×2 (13:27→14:08)
[2020-07-15] MEDS ORDERED: Ketorolac 30 MG/ML SDV IVPUSH ONE (13:28)
[2020-07-15] MEDS ORDERED: Ondansetron 4 MG/2 ML SDV IVPUSH ONE (13:30)
[2020-07-15] MEDS ORDERED: Iopamidol 755 Mg/ML 75 ML Bottle IV ONE (14:08)
[2020-07-15] MEDS: Piperacillin/Tazobactam 3.375 GM in Sodium Chloride 0.9% 50 ML IV SCH ×2 (15:29→21:22)
--- NOTE | 2020-07-15 15:42 | EDM.PDOC ---
ED HPI GENERAL MEDICAL PROBLEM - General Chief Complaint: Abdominal Pain Stated Complaint: ??? 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 (see below) Other Treatments [employer] SUPERVISOR: Abx-Cipro given to her by ANKIT for flare ups per pt report - Related Data Allergies Allergy/AdvReac Type Severity Reaction Status Date / Time pneumococcal vaccine Allergy Hives Verified 07/15/20 13:30 [Pneumococcal Vaccine] Home Meds: Home Meds Magnesium Oxide 400 mg PO BEDTIME 11/13/19 [History] Melatonin 10 mg PO BEDTIME 11/13/19 [History] predniSONE [Prednisone] 20 mg PO DAILY 11/13/19 [History] Saccharomyces Boulardii [Florastor] 250 mg PO BID 30 Days #60 cap 11/14/19 [Rx] Multivitamin [Multivitamins] 1 each PO DAILY 07/15/20 [History] Past Medical History HEENT History: Reports: Cataract, Impaired Vision Cardiovascular History: Reports: High Cholesterol Respiratory History: Reports: None Gastrointestinal History: Reports: Diverticulosis, GERD, Irritable Bowel Syndrome MASH GRINDER History: Reports: None Musculoskeletal History: Reports: Fibromyalgia, Other (See Below) Other Musculoskeletal History: Polymyalgia rheumatica Neurological History: Reports: None Psychiatric History: Reports: None Hematologic History: Reports: None Immunologic History: Reports: None Dermatologic History: Reports: None - Past Surgical History HEENT Surgical History: Reports: Cataract Surgery GI Surgical History: Reports: Appendectomy, Cholecystectomy, Colonoscopy Endocrine Surgical History: Reports: None Social & Family History - Family History Family Medical History: No Pertinent Family History HEENT: Reports: None - Tobacco Use Tobacco Use Status *Q: Unknown Ever Used Tobacco - Caffeine Use Caffeine Use: Reports: None - Recreational Drug Use Recreational Drug Use: No ED ROS GENERAL - Review of Systems Review Of Systems: See Below Constitutional: Reports: No Symptoms HEENT: Reports: No Symptoms Respiratory: Reports: No Symptoms Cardiovascular: Reports: No Symptoms Endocrine: Reports: No Symptoms GI/Abdominal: Reports: Abdominal Pain. Denies: Nausea, Vomiting : Reports: No Symptoms Musculoskeletal: Reports: No Symptoms Skin: Reports: No Symptoms Neurological: Reports: No Symptoms Psychiatric: Reports: No Symptoms Hematologic/Lymphatic: Reports: No Symptoms Immunologic: Reports: No Symptoms ED EXAM, GI/ABD - Physical Exam Exam: See Below Exam Limited By: No Limitations General Appearance: Alert, WD/WN, No Apparent Distress, Other (very, pleasant, cooperative) Ears: Hearing Grossly Normal Nose: Normal Inspection Throat/Mouth: Normal Voice, No Airway Compromise Head: Atraumatic, Normocephalic Neck: Normal Inspection, Supple, Non-Tender, Full Range of Motion. No: Lymphadenopathy (R), Lymphadenopathy (L) Respiratory/Chest: Lungs Clear, Normal Breath Sounds, Chest Non-Tender Cardiovascular: Regular Rate, Rhythm, No Edema, Other (2/6 AMY at LSB) GI/Abdominal Exam: Soft, Other (1+ tender at LLQ to deep palpation at mid inguinal line, no CVAT b/l) Back Exam: Normal Inspection, Full Range of Motion. No: CVA Tenderness (R), CVA Tenderness (L) Extremities: Normal Inspection, Normal Range of Motion, Non-Tender, No Pedal Edema, Other (turgor wnl) Neurological: Alert, Oriented, CN II-XII Intact, Normal Cognition, No Motor/Sensory Deficits Psychiatric: Normal Affect, Normal Mood Skin Exam: Warm, Dry, Intact, Normal Color, No Rash Lymphatic: No Adenopathy Course - Vital Signs Last Recorded V/S: Last Vital Signs Temp 36.7 C 07/15/20 13:15 Pulse 94 07/15/20 13:15 Resp 16 07/15/20 13:15 BP 134/47 L 07/15/20 13:15 Pulse Ox 100 07/15/20 13:15 - Orders/Labs/Meds Orders: Active Orders 24 hr Category Date Time Status EKG Documentation Completion [RC] ASDIRECTED Care 07/15/20 14:10 Ordered Abdomen Pelvis w Cont [CT] Stat Exams 07/15/20 13:29 Ordered Piperacillin/Tazobactam [Zosyn] 3.375 gm Med 07/15/20 15:30 Ordered Sodium Chloride 0.9% [Normal Saline] 50 ml IV Q6H EKG 12 Lead [EK] Routine Ther 07/15/20 14:08 Ordered Medication Orders Piperacillin Sod/Tazobactam (Sod 3.375 gm/ Sodium Chloride) 50 mls @ 100 mls/hr IV Q6H [facility] Last Admin: 07/15/20 15:29 Dose: 100 mls/hr Documented by: SORAYA Labs: Laboratory Tests 07/15/20 07/15/20 07/15/20 Range/Units 13:04 13:04 13:04 WBC 16.6 H (3.0-10.3) x10-3/uL RBC 4.44 (3.60-5.20) x10(6)uL Hgb 13.9 (11.4-15.5) g/dL Hct 42.0 (34.2-48.2) % MCV 94.6 (76.7-100.5) fL MCH 31.3 (23.9-33.9) pg MCHC 33.1 (31.9-34.8) g/dL RDW 13.5 (12.3-16.5) % Plt Count 293 (151-488) x10(3)uL MPV 8.1 (7.1-12.4) fL Neut % (Auto) 82.4 H (30.8-76.2) % Lymph % (Auto) 8.5 L (18.4-52.1) % [place] % (Auto) 8.2 (4.4-15.7) % Eos % (Auto) 0.6 (0.6-8.1) % Baso % (Auto) 0.3 (0.2-1.5) % Neut # (Auto) 13.7 H (1.5-6.3) x10-3/uL Lymph # (Auto) 1.4 (1.0-4.4) x10-3/uL [place] # (Auto) 1.4 H (0.3-1.0) x10-3/uL Eos # (Auto) 0.1 (0.0-0.8) x10-3/uL Baso # (Auto) 0.0 (0.0-0.1) x10-3/uL Sodium 134 L (135-145) mmol/L Potassium 4.0 (3.5-5.3) mmol/L Chloride 99 L D (100-110) mmol/L Carbon Dioxide 27 (21-32) mmol/L BUN 21 H D (7-18) mg/dL Creatinine 1.0 (0.55-1.02) mg/dL Est Cr Clr Drug Dosing TNP Estimated GFR (MDRD) 53 L (>60) BUN/Creatinine Ratio 21.0 H (9-20) Glucose 121 H (80-116) mg/dL Calcium 8.5 L (8.6-10.2) mg/dL Total Bilirubin 1.1 (0.1-1.3) mg/dL AST 17 D (5-25) IU/L ALT 35 D (12-36) U/L Alkaline Phosphatase 114 H (56-112) IU/L C-Reactive Protein 6.5 H* (0.5-0.9) mg/dL Total Protein 6.6 (6.0-8.0) g/dL Albumin 3.2 (3.2-4.6) g/dL Globulin 3.4 g/dL Albumin/Globulin Ratio 0.9 Urine Color (YELLOW) Urine Appearance (CLEAR) Urine pH (5.0-6.5) Ur Specific Amanda (1.010-1.025) Urine Protein (NEGATIVE) mg/dL Urine Glucose (UA) (NORMAL) mg/dL Urine Ketones (NEGATIVE) mg/dL Urine Occult Blood (NEGATIVE) Urine Nitrite (NEGATIVE) Urine Bilirubin (NEGATIVE) Urine Urobilinogen (NEGATIVE) mg/dL Ur Leukocyte Esterase (NEGATIVE) Urine RBC (0-5) Urine WBC (0-5) Ur Squamous Epith Cells (NS,R,O) Urine Bacteria (NS) 07/15/20 Range/Units 15:00 WBC (3.0-10.3) x10-3/uL RBC (3.60-5.20) x10(6)uL Hgb (11.4-15.5) g/dL Hct (34.2-48.2) % MCV (76.7-100.5) fL MCH (23.9-33.9) pg MCHC (31.9-34.8) g/dL RDW (12.3-16.5) % Plt Count (151-488) x10(3)uL MPV (7.1-12.4) fL Neut % (Auto) (30.8-76.2) % Lymph % (Auto) (18.4-52.1) % [place] % (Auto) (4.4-15.7) % Eos % (Auto) (0.6-8.1) % Baso % (Auto) (0.2-1.5) % Neut # (Auto) (1.5-6.3) x10-3/uL Lymph # (Auto) (1.0-4.4) x10-3/uL [place] # (Auto) (0.3-1.0) x10-3/uL Eos # (Auto) (0.0-0.8) x10-3/uL Baso # (Auto) (0.0-0.1) x10-3/uL Sodium (135-145) mmol/L Potassium (3.5-5.3) mmol/L Chloride (100-110) mmol/L Carbon Dioxide (21-32) mmol/L BUN (7-18) mg/dL Creatinine (0.55-1.02) mg/dL Est Cr Clr Drug Dosing Estimated GFR (MDRD) (>60) BUN/Creatinine Ratio (9-20) Glucose (80-116) mg/dL Calcium (8.6-10.2) mg/dL Total Bilirubin (0.1-1.3) mg/dL AST (5-25) IU/L ALT (12-36) U/L Alkaline Phosphatase (56-112) IU/L C-Reactive Protein (0.5-0.9) mg/dL Total Protein (6.0-8.0) g/dL Albumin (3.2-4.6) g/dL Globulin g/dL Albumin/Globulin Ratio Urine Color Yellow (YELLOW) Urine Appearance Clear (CLEAR) Urine pH 7.0 H (5.0-6.5) Ur Specific [place] 1.005 L (1.010-1.025) Urine Protein Negative (NEGATIVE) mg/dL Urine Glucose (UA) Normal (NORMAL) mg/dL Urine Ketones Negative (NEGATIVE) mg/dL Urine Occult Blood Moderate H (NEGATIVE) Urine Nitrite Negative (NEGATIVE) Urine Bilirubin Negative (NEGATIVE) Urine Urobilinogen Normal (NEGATIVE) mg/dL Ur Leukocyte Esterase Negative (NEGATIVE) Urine RBC 0-5 (0-5) Urine WBC 0-5 (0-5) Ur Squamous Epith Cells Few H (NS,R,O) Urine Bacteria Few H (NS) Meds: Medications Generic Name Dose Route Start Last Admin Trade Name Freq PRN Reason Stop Dose Admin Piperacillin Sod/Tazobactam 50 mls @ 100 mls/hr 07/15/20 15:30 07/15/20 15:29 Sod 3.375 gm/ Sodium Chloride IV 100 mls/hr Q6H [facility] Administration Discontinued Medications Generic Name Dose Route Start Last Admin Trade Name Freq PRN Reason Stop Dose Admin Sodium Chloride 1,000 mls @ 999 mls/hr 07/15/20 13:27 07/15/20 14:00 Normal Saline IV 07/15/20 14:27 999 mls/hr .BOLUS ONE Administration Sodium Chloride 1,000 mls @ 999 mls/hr 07/15/20 14:08 07/15/20 15:26 Normal Saline IV 07/15/20 15:08 Not Given .BOLUS ONE Iopamidol 75 ml 07/15/20 14:08 07/15/20 14:11 Iopamidol 755 Mg/Ml 75 Ml Bottle IV 07/15/20 14:09 75 ml ASDIRECTED ONE Administration Ketorolac Tromethamine 15 mg 07/15/20 13:28 07/15/20 13:56 Ketorolac 30 Mg/Ml Sdv IVPUSH 07/15/20 13:29 15 mg ONETIME ONE Administration Ondansetron HCl 4 mg 07/15/20 13:30 07/15/20 13:53 Ondansetron 4 Mg/2 Ml Sdv IVPUSH 07/15/20 13:31 4 mg ONETIME ONE Administration Departure - Departure Time of Disposition: 15:40 Disposition: Admitted As Inpatient 66 Condition: Good Clinical Impression: Acute peritonitis, Acute diverticulitis, Elevated WBC count, Elevated C- reactive protein (CRP) - Discharge Information *PRESCRIPTION DRUG MONITORING PROGRAM REVIEWED*: Not Applicable *COPY OF PRESCRIPTION DRUG MONITORING REPORT IN PATIENT JAIME: Not Applicable Sepsis Event Note (ED) - Evaluation Sepsis Screening Result: No Definite Risk - Focused Exam Vital Signs: Vital Signs Temp Pulse Resp BP Pulse Ox 04/02/21 13:15 36.7 C 94 16 134/47 L 100 - My Orders Last 24 Hours: My Active Orders 07/15/20 13:29 Abdomen Pelvis w Cont [CT] Stat 07/15/20 14:08 EKG 12 Lead [EK] Routine 07/15/20 14:10 EKG Documentation Completion [RC] ASDIRECTED 07/15/20 15:30 Piperacillin/Tazobactam [Zosyn] 3.375 gm Sodium Chloride 0.9% [Normal Saline] 50 ml IV Q6H - Assessment/Plan Last 24 Hours: My Active Orders 07/15/20 13:29 Abdomen Pelvis w Cont [CT] Stat 07/15/20 14:08 EKG 12 Lead [EK] Routine 07/15/20 14:10 EKG Documentation Completion [RC] ASDIRECTED 07/15/20 15:30 Piperacillin/Tazobactam [Zosyn] 3.375 gm Sodium Chloride 0.9% [Normal Saline] 50 ml IV Q6H
--- NOTE | 2020-07-15 16:34 | CT ---
INDICATION: Left lower quadrant pain x2 days. History of diverticulitis descending colon. CT ABDOMEN AND PELVIS WITH CONTRAST: Spiral 3.75 mm axial sections were obtained through the abdomen and pelvis with 75 mL Isovue-370 (at 2 mL/second) with sagittal and coronal reconstructions 07/15/20 and compared with 11/13/19. Total exam DLP was 395.31 mGy-cm. The heart appears to be near the upper limits of normal in size. A definite active infiltrate or effusion was not identified. A moderate sized fixed hiatal hernia is noted, appearing slightly more prominent than on the previous study. The liver appeared normal. There are clips at the cystic duct and absence of the gallbladder, compatible with cholecystectomy. The adrenal glands, spleen, somewhat fatty-replaced pancreas, and common bile duct appeared normal. The appendix is absent, compatible with history of its removal. No evidence of free air or definite bowel obstruction was identified. No evidence of inguinal or ventral hernia was seen. Calcifications are noted in the abdominal aorta, splenic, iliac, and femoral arteries. Thickening of the wall of the urinary bladder is noted, which may be on the basis of cystitis and should be correlated clinically. Descending colon diverticulosis is noted with resolution of a previous distal descending colon diverticulitis. Diverticulosis in the sigmoid colon is more prominent than in the descending with fat stranding in the distal sigmoid and rectosigmoid colon and this fat stranding extends inferiorly and is generally pericolonic, compatible with diverticulitis with peritonitis over a fairly significant portion of the sigmoid/rectosigmoid colon. As mentioned above, no free air was seen. Also, there is no definite abscess formation. Otherwise, no organomegaly, mass lesions, or free fluid collections were identified in the abdomen or pelvis. There are some fluid-filled loops of bowel of questionable significance, possibly related to fluid intact. These are not dilated and no mechanically obstructive process is strongly suggested. No retroperitoneal mass was identified. IMPRESSION: 1. Sigmoid and rectosigmoid diverticulitis with pericolonic peritonitis, moderately extensive, but no significant abscess or free air seen. 2. Thickening of the wall of the urinary bladder which could be on the basis of cystitis and should be correlated clinically. 3. Post appendectomy and cholecystectomy. 4. ASD. Report was called to Dr. Garcia at 1502 hours 07/15/20. [facility]
[2020-07-15] MEDS ORDERED: Ondansetron 4 MG Tab.DIS PO PRN (17:15)
[2020-07-15] MEDS ORDERED: Acetaminophen/HYDROcodone 325-5 MG Tab PO PRN (17:15)
--- NOTE | 2020-07-15 17:25 | PCM.HP.2 ---
H&P History of Present Illness - General Date of Service: 07/15/20 Admit Problem/Dx: Admission Diagnosis/Problem Admission Diagnosis/Problem Diverticulitis Source of Information: Patient History Limitations: Reports: No Limitations - History of Present Illness Initial Comments - Free Text/Narative: This is an 84-year-old female patient presents to the ER with lower quadrant abdominal pain. Patient's had many bouts of diverticulitis in the past. She had one episode of vomiting. She says she vomits when she has a lot of pain. She denies constipation, diarrhea, blood in her stool. The patient states the pain is sharp and left lower quadrant. She denies fevers or chills. She denies runny nose, sore throat, cough, chest pain. She denies urinary symptoms or vaginal symptoms. Abdominal Pain Score (Numeric/FACES): 3 - Related Data Allergies/Adverse Reactions: Allergies Allergy/AdvReac Type Severity Reaction Status Date / Time pneumococcal vaccine Allergy Hives Verified 07/15/20 13:30 [Pneumococcal Vaccine] Home Medications: Home Meds Magnesium Oxide 400 mg PO BEDTIME 11/13/19 [History] Melatonin 10 mg PO BEDTIME 11/13/19 [History] predniSONE [Prednisone] 20 mg PO DAILY 11/13/19 [History] Multivitamin [Multivitamins] 1 each PO DAILY 07/15/20 [History] Saccharomyces Boulardii [Florastor] 250 mg PO BEDTIME 07/15/20 [History] Past Medical History HEENT History: Reports: Cataract, Impaired Vision Cardiovascular History: Reports: High Cholesterol Respiratory History: Reports: None Gastrointestinal History: Reports: Diverticulosis, GERD, Irritable Bowel Syndrome [employer] History: Reports: None Musculoskeletal History: Reports: Fibromyalgia, Other (See Below) Other Musculoskeletal History: Polymyalgia rheumatica Neurological History: Reports: None Psychiatric History: Reports: None Hematologic History: Reports: None Immunologic History: Reports: None Dermatologic History: Reports: None - Infectious Disease History Infectious Disease History: Reports: Chicken Pox, Measles, Mumps - Past Surgical History HEENT Surgical History: Reports: Cataract Surgery GI Surgical History: Reports: Appendectomy, Cholecystectomy, Colonoscopy Endocrine Surgical History: Reports: None Social & Family History - Family History Family Medical History: No Pertinent Family History HEENT: Reports: None Psychiatric: Reports: Other (See Below) (Alzheimer's disease-brother) - Tobacco Use Tobacco Use Status *Q: Never Tobacco User Second Hand Smoke Exposure: No - Caffeine Use Caffeine Use: Reports: Coffee - Recreational Drug Use Recreational Drug Use: No H&P Review of Systems - Review of Systems: Review Of Systems: See Below General: Reports: Weakness HEENT: Reports: No Symptoms Pulmonary: Reports: No Symptoms Cardiovascular: Reports: No Symptoms Gastrointestinal: Reports: Abdominal Pain, Vomiting Genitourinary: Reports: No Symptoms Musculoskeletal: Reports: No Symptoms Skin: Reports: No Symptoms Psychiatric: Reports: No Symptoms Neurological: Reports: No Symptoms Hematologic/Lymphatic: Reports: No Symptoms Immunologic: Reports: No Symptoms Exam - Exam Exam: See Below - Vital Signs Vital Signs: Last Vital Signs Temp 98.1 F 07/15/20 16:40 Pulse 86 07/15/20 16:40 Resp 16 07/15/20 16:40 BP 134/63 07/15/20 16:40 Pulse Ox 97 07/15/20 16:40 Weight: 148 lb 3.2 oz - Exam General: Alert, Oriented, Cooperative HEENT: PERRLA, Conjunctiva Clear, Hearing Intact, Mucosa Moist & [place], Posterior Pharynx Clear, TMs Clear Neck: Supple, Trachea Midline, 2 Lungs: Clear to Auscultation, Normal Respiratory Effort Cardiovascular: Regular Rate, Regular Rhythm. No: Systolic Murmur GI/Abdominal Exam: Soft, Tender (Left lower quadrant). No: Guarding, Rigid, Rebound, Mass Extremities: Normal Inspection, Non-Tender, No Pedal Edema Skin: Warm, Dry, Intact Neurological: Normal Speech, Normal Tone Neuro Extensive - Mental Status: Alert, Oriented x3, Normal Mood/Affect, Normal Cognition, Memory Intact Psychiatric: Alert, Normal Affect, Normal Mood - Patient Data Lab Results Last 24 hrs: Laboratory Results - last 24 hr 07/15/20 07/15/20 07/15/20 Range/Units 13:04 13:04 13:04 WBC 16.6 H (3.0-10.3) x10-3/uL RBC 4.44 (3.60-5.20) x10(6)uL Hgb 13.9 (11.4-15.5) g/dL Hct 42.0 (34.2-48.2) % MCV 94.6 (76.7-100.5) fL MCH 31.3 (23.9-33.9) pg MCHC 33.1 (31.9-34.8) g/dL RDW 13.5 (12.3-16.5) % Plt Count 293 (151-488) x10(3)uL MPV 8.1 (7.1-12.4) fL Neut % (Auto) 82.4 H (30.8-76.2) % Lymph % (Auto) 8.5 L (18.4-52.1) % [place] % (Auto) 8.2 (4.4-15.7) % Eos % (Auto) 0.6 (0.6-8.1) % Baso % (Auto) 0.3 (0.2-1.5) % Neut # (Auto) 13.7 H (1.5-6.3) x10-3/uL Lymph # (Auto) 1.4 (1.0-4.4) x10-3/uL [place] # (Auto) 1.4 H (0.3-1.0) x10-3/uL Eos # (Auto) 0.1 (0.0-0.8) x10-3/uL Baso # (Auto) 0.0 (0.0-0.1) x10-3/uL Sodium 134 L (135-145) mmol/L Potassium 4.0 (3.5-5.3) mmol/L Chloride 99 L D (100-110) mmol/L Carbon Dioxide 27 (21-32) mmol/L BUN 21 H D (7-18) mg/dL Creatinine 1.0 (0.55-1.02) mg/dL Est Cr Clr Drug Dosing TNP Estimated GFR (MDRD) 53 L (>60) BUN/Creatinine Ratio 21.0 H (9-20) Glucose 121 H (80-116) mg/dL Calcium 8.5 L (8.6-10.2) mg/dL Total Bilirubin 1.1 (0.1-1.3) mg/dL AST 17 D (5-25) IU/L ALT 35 D (12-36) U/L Alkaline Phosphatase 114 H (56-112) IU/L C-Reactive Protein 6.5 H* (0.5-0.9) mg/dL Total Protein 6.6 (6.0-8.0) g/dL Albumin 3.2 (3.2-4.6) g/dL Globulin 3.4 g/dL Albumin/Globulin Ratio 0.9 Urine Color (YELLOW) Urine Appearance (CLEAR) Urine pH (5.0-6.5) Ur Specific [place] (1.010-1.025) Urine Protein (NEGATIVE) mg/dL Urine Glucose (UA) (NORMAL) mg/dL Urine Ketones (NEGATIVE) mg/dL Urine Occult Blood (NEGATIVE) Urine Nitrite (NEGATIVE) Urine Bilirubin (NEGATIVE) Urine Urobilinogen (NEGATIVE) mg/dL Ur Leukocyte Esterase (NEGATIVE) Urine RBC (0-5) Urine WBC (0-5) Ur Squamous Epith Cells (NS,R,O) Urine Bacteria (NS) SARS-CoV-2 RNA (MARVIN) (NEGATIVE) 07/15/20 07/15/20 Range/Units 15:00 15:40 WBC (3.0-10.3) x10-3/uL RBC (3.60-5.20) x10(6)uL Hgb (11.4-15.5) g/dL Hct (34.2-48.2) % MCV (76.7-100.5) fL MCH (23.9-33.9) pg MCHC (31.9-34.8) g/dL RDW (12.3-16.5) % Plt Count (151-488) x10(3)uL MPV (7.1-12.4) fL Neut % (Auto) (30.8-76.2) % Lymph % (Auto) (18.4-52.1) % [place] % (Auto) (4.4-15.7) % Eos % (Auto) (0.6-8.1) % Baso % (Auto) (0.2-1.5) % Neut # (Auto) (1.5-6.3) x10-3/uL Lymph # (Auto) (1.0-4.4) x10-3/uL [place] # (Auto) (0.3-1.0) x10-3/uL Eos # (Auto) (0.0-0.8) x10-3/uL Baso # (Auto) (0.0-0.1) x10-3/uL Sodium (135-145) mmol/L Potassium (3.5-5.3) mmol/L Chloride (100-110) mmol/L Carbon Dioxide (21-32) mmol/L BUN (7-18) mg/dL Creatinine (0.55-1.02) mg/dL Est Cr Clr Drug Dosing Estimated GFR (MDRD) (>60) BUN/Creatinine Ratio (9-20) Glucose (80-116) mg/dL Calcium (8.6-10.2) mg/dL Total Bilirubin (0.1-1.3) mg/dL AST (5-25) IU/L ALT (12-36) U/L Alkaline Phosphatase (56-112) IU/L C-Reactive Protein (0.5-0.9) mg/dL Total Protein (6.0-8.0) g/dL Albumin (3.2-4.6) g/dL Globulin g/dL Albumin/Globulin Ratio Urine Color Yellow (YELLOW) Urine Appearance Clear (CLEAR) Urine pH 7.0 H (5.0-6.5) Ur Specific [place] 1.005 L (1.010-1.025) Urine Protein Negative (NEGATIVE) mg/dL Urine Glucose (UA) Normal (NORMAL) mg/dL Urine Ketones Negative (NEGATIVE) mg/dL Urine Occult Blood Moderate H (NEGATIVE) Urine Nitrite Negative (NEGATIVE) Urine Bilirubin Negative (NEGATIVE) Urine Urobilinogen Normal (NEGATIVE) mg/dL Ur Leukocyte Esterase Negative (NEGATIVE) Urine RBC 0-5 (0-5) Urine WBC 0-5 (0-5) Ur Squamous Epith Cells Few H (NS,R,O) Urine Bacteria Few H (NS) SARS-CoV-2 RNA (MARVIN) Negative (NEGATIVE) Result Diagrams: 07/15/20 13:04 07/15/20 13:04 Sepsis Event Note - Evaluation Sepsis Screening Result: No Definite Risk - Focused Exam Vital Signs: Vital Signs Temp Pulse Resp BP Pulse Ox 07/15/20 16:40 98.1 F 86 16 134/63 97 07/15/20 15:23 85 16 124/51 L 99 07/15/20 13:15 98.1 F 94 16 134/47 L 100 - Problem List (1) Palliative care status SNOMED Code(s): 441319087 ICD Code: Z51.5 - ENCOUNTER FOR PALLIATIVE CARE Status: Acute Current Visit: Yes (2) Acute diverticulitis SNOMED Code(s): 127481331 ICD Code: K57.92 - DVTRCLI OF INTEST, PART UNSP, W/O PERF OR ABSCESS W/O BLEED Status: Acute Current Visit: Yes (3) Acute peritonitis SNOMED Code(s): 57609424 ICD Code: K65.0 - GENERALIZED (ACUTE) PERITONITIS Status: Acute Current Visit: Yes (4) Elevated C-reactive protein (CRP) SNOMED Code(s): 920498936268362 ICD Code: R79.82 - ELEVATED C-REACTIVE PROTEIN (CRP) Status: Acute Current Visit: Yes Problem List Initiated/Reviewed/Updated: Yes Orders Last 24hrs: Active Orders 24 hr Category Date Time Status Patient Status [ADT] Routine ADT 07/15/20 17:15 Ordered EKG Documentation Completion [RC] ASDIRECTED Care 07/15/20 14:10 Active Height and Weight [RC] DAILY Care 07/15/20 17:15 Ordered Intake and Output [RC] QSHIFT Care 07/15/20 17:16 Ordered Oxygen Therapy [RC] PRN Care 07/15/20 17:15 Ordered Up With Assistance [RC] ASDIRECTED Care 07/15/20 17:15 Ordered VTE/DVT Education [RC] Per Unit Routine Care 07/15/20 17:15 Ordered Vital Signs [RC] QSHIFT Care 07/15/20 17:15 Ordered Full Liquid Diet [DIET] Diet 07/15/20 Dinner Ordered CBC WITH AUTO DIFF [HEME] AM Lab 07/16/20 05:11 Ordered COMPREHENSIVE METABOLIC PN,CMP [CHEM] AM Lab 07/16/20 05:11 Ordered UA W/O MICROSCOPIC [URIN] AM Lab 07/16/20 05:11 Ordered Acetaminophen/HYDROcodone [[place] 325-5 MG] Med 07/15/20 17:15 Ordered 1 tab PO Q4H PRN Enoxaparin [Lovenox] Med 07/15/20 17:15 Ordered 30 mg SUBCUT Q24H Lactated Ringers [Ringers, Lactated] 1,000 ml Med 07/15/20 17:15 Ordered IV ASDIRECTED Magnesium Oxide Med 07/15/20 21:00 Ordered 400 mg PO BEDTIME Melatonin [Melatonin] Med 07/15/20 21:00 Ordered 10 mg PO BEDTIME Multivitamin [Multivitamins] Med 07/16/20 09:00 Ordered 1 each PO DAILY Ondansetron [Zofran ODT] Med 07/15/20 17:15 Ordered 4 mg PO Q4H PRN Piperacillin/Tazobactam [Zosyn] 3.375 gm Med 07/15/20 15:30 Active Sodium Chloride 0.9% [Normal Saline] 50 ml IV Q6H Saccharomyces Boulardii [Florastor] Med 07/15/20 21:00 Ordered 250 mg PO BEDTIME Sodium Chloride 0.9% [Saline Flush] Med 07/15/20 17:15 Ordered 10 ml FLUSH ASDIRECTED PRN predniSONE Med 07/16/20 09:00 Ordered 20 mg PO DAILY Peripheral IV Insertion Adult [OM.PC] Routine Oth 07/15/20 17:15 Ordered Sequential Compression Device [OM.PC] Per Unit Routine Oth 07/15/20 17:17 Ordered Resuscitation Status Routine Resus Stat 07/15/20 17:15 Ordered EKG 12 Lead [EK] Routine Ther 07/15/20 14:08 Ordered Medication Orders Hydrocodone Bitart/Acetaminophen (Acetaminophen/Hydrocodone 325-5 Mg Tab) 1 tab PO Q4H PRN PRN Reason: Pain (moderate 4-6) Enoxaparin Sodium (Enoxaparin 30 Mg/0.3 Ml Syringe) 30 mg SUBCUT Q24H FELIPA Piperacillin Sod/Tazobactam (Sod 3.375 gm/ Sodium Chloride) 50 mls @ 100 mls/hr IV Q6H FELIPA Last Admin: 07/15/20 15:29 Dose: 100 mls/hr Documented by: SORAYA Lactated Ringer's (Ringers, Lactated) 1,000 mls @ 100 mls/hr IV ASDIRECTED FELIPA Magnesium Oxide (Magnesium Oxide 400 Mg Tab) 400 mg PO BEDTIME FELIPA Non-Formulary Medication (Melatonin [Melatonin]) 10 mg PO BEDTIME FELIPA Non-Formulary Medication (Multivitamin [Multivitamins]) 1 each PO DAILY FELIPA Ondansetron HCl (Ondansetron 4 Mg Tab.Dis) 4 mg PO Q4H PRN PRN Reason: nausea, able to take PO Prednisone (Prednisone 10 Mg Tab) 20 mg PO DAILY [facility] Saccharomyces Boulardii (Saccharomyces Boulardii (Probiotic) 250 Mg Cap) 250 mg PO BEDTIME FELIPA Sodium Chloride (Sodium Chloride 0.9% 10 Ml Syringe) 10 ml FLUSH ASDIRECTED PRN PRN Reason: Keep Vein Open Assessment/Plan Comment:: 1. Admit for admission. 2. Zosyn IV every 6 hours 3. [place] 5/325 one every 4-6 hours p.m. for pain 4. Diet full liquids 5. Activity up with assist 6. Lovenox and SCD for clot prophylaxis 7. Reviewed CT scan and labs. Repeat CBC, CMP, UA with microinvasion a.m. 8. Discuss CODE STATUS. Patient wants to be a DO NOT RESUSCITATE. - Mortality Measure Prognosis:: Good
[2020-07-15] MEDS: Lactated Ringers 1,000 ML IV SCH (17:56)
[2020-07-15] MEDS: Sodium Chloride 0.9% 10 ML Syringe FLUSH PRN ×2 (17:56→21:59)
[2020-07-15] MEDS ORDERED: Enoxaparin 40 MG/0.4 ML Syringe SUBCUT SCH (18:00)
[2020-07-15] MEDS ORDERED: Saccharomyces Boulardii (Probiotic) 250 MG Cap PO SCH (21:00)
[2020-07-15] MEDS ORDERED: Melatonin 3 MG Tab PO SCH (21:00)
[2020-07-15] MEDS ORDERED: Non-Formulary Medication 1 Each (Melatonin [Melatonin] 10 MG Tablet) PO SCH (21:00)
[2020-07-15] MEDS ORDERED: Magnesium Oxide 400 MG Tab PO SCH (21:00)
[2020-07-16] MEDS: Piperacillin/Tazobactam 3.375 GM in Sodium Chloride 0.9% 50 ML IV SCH ×2 (03:21→08:40)
[2020-07-16] MEDS: Sodium Chloride 0.9% 10 ML Syringe FLUSH PRN (03:22)
[2020-07-16] MEDS: Lactated Ringers 1,000 ML IV SCH (04:01)
--- NOTE | 2020-07-16 08:23 | PCM.PN ---
- General Info Date of Service: 07/16/20 Admission Dx/Problem (Free Text): The patient states her abdominal pain in the lower quadrant is much better today. She doesn't have much of an appetite but she is drinking plenty of fluids denies fevers, chills. Still little bit of weakness. She's not moved her bowels at this time. - Patient Data Vitals - Most Recent: Last Vital Signs Temp 98.2 F 07/16/20 07:20 Pulse 78 07/16/20 07:20 Resp 16 07/16/20 07:20 BP 111/52 L 07/16/20 07:20 Pulse Ox 97 07/16/20 07:20 Weight - Most Recent: 148 lb 3.2 oz I&O - Last 24 Hours: Intake & Output 07/15/20 07/16/20 07/16/20 22:59 06:59 14:59 Intake Total 425 730 Output Total 650 800 Balance -225 -70 Lab Results Last 24 Hours: Laboratory Results - last 24 hr 07/15/20 07/15/20 07/15/20 Range/Units 13:04 13:04 13:04 WBC 16.6 H (3.0-10.3) x10-3/uL RBC 4.44 (3.60-5.20) x10(6)uL Hgb 13.9 (11.4-15.5) g/dL Hct 42.0 (34.2-48.2) % MCV 94.6 (76.7-100.5) fL MCH 31.3 (23.9-33.9) pg MCHC 33.1 (31.9-34.8) g/dL RDW 13.5 (12.3-16.5) % Plt Count 293 (151-488) x10(3)uL MPV 8.1 (7.1-12.4) fL Neut % (Auto) 82.4 H (30.8-76.2) % Lymph % (Auto) 8.5 L (18.4-52.1) % [place] % (Auto) 8.2 (4.4-15.7) % Eos % (Auto) 0.6 (0.6-8.1) % Baso % (Auto) 0.3 (0.2-1.5) % Neut # (Auto) 13.7 H (1.5-6.3) x10-3/uL Lymph # (Auto) 1.4 (1.0-4.4) x10-3/uL [place] # (Auto) 1.4 H (0.3-1.0) x10-3/uL Eos # (Auto) 0.1 (0.0-0.8) x10-3/uL Baso # (Auto) 0.0 (0.0-0.1) x10-3/uL Sodium 134 L (135-145) mmol/L Potassium 4.0 (3.5-5.3) mmol/L Chloride 99 L D (100-110) mmol/L Carbon Dioxide 27 (21-32) mmol/L BUN 21 H D (7-18) mg/dL Creatinine 1.0 (0.55-1.02) mg/dL Est Cr Clr Drug Dosing TNP Estimated GFR (MDRD) 53 L (>60) BUN/Creatinine Ratio 21.0 H (9-20) Glucose 121 H (80-116) mg/dL Calcium 8.5 L (8.6-10.2) mg/dL Total Bilirubin 1.1 (0.1-1.3) mg/dL AST 17 D (5-25) IU/L ALT 35 D (12-36) U/L Alkaline Phosphatase 114 H (56-112) IU/L C-Reactive Protein 6.5 H* (0.5-0.9) mg/dL Total Protein 6.6 (6.0-8.0) g/dL Albumin 3.2 (3.2-4.6) g/dL Globulin 3.4 g/dL Albumin/Globulin Ratio 0.9 Urine Color (YELLOW) Urine Appearance (CLEAR) Urine pH (5.0-6.5) Ur Specific [place] (1.010-1.025) Urine Protein (NEGATIVE) mg/dL Urine Glucose (UA) (NORMAL) mg/dL Urine Ketones (NEGATIVE) mg/dL Urine Occult Blood (NEGATIVE) Urine Nitrite (NEGATIVE) Urine Bilirubin (NEGATIVE) Urine Urobilinogen (NEGATIVE) mg/dL Ur Leukocyte Esterase (NEGATIVE) Urine RBC (0-5) Urine WBC (0-5) Ur Squamous Epith Cells (NS,R,O) Urine Bacteria (NS) SARS-CoV-2 RNA (MARVIN) (NEGATIVE) 07/15/20 07/15/20 07/16/20 Range/Units 15:00 15:40 06:20 WBC (3.0-10.3) x10-3/uL RBC (3.60-5.20) x10(6)uL Hgb (11.4-15.5) g/dL Hct (34.2-48.2) % MCV (76.7-100.5) fL MCH (23.9-33.9) pg MCHC (31.9-34.8) g/dL RDW (12.3-16.5) % Plt Count (151-488) x10(3)uL MPV (7.1-12.4) fL Neut % (Auto) (30.8-76.2) % Lymph % (Auto) (18.4-52.1) % [place] % (Auto) (4.4-15.7) % Eos % (Auto) (0.6-8.1) % Baso % (Auto) (0.2-1.5) % Neut # (Auto) (1.5-6.3) x10-3/uL Lymph # (Auto) (1.0-4.4) x10-3/uL [place] # (Auto) (0.3-1.0) x10-3/uL Eos # (Auto) (0.0-0.8) x10-3/uL Baso # (Auto) (0.0-0.1) x10-3/uL Sodium (135-145) mmol/L Potassium (3.5-5.3) mmol/L Chloride (100-110) mmol/L Carbon Dioxide (21-32) mmol/L BUN (7-18) mg/dL Creatinine (0.55-1.02) mg/dL Est Cr Clr Drug Dosing Estimated GFR (MDRD) (>60) BUN/Creatinine Ratio (9-20) Glucose (80-116) mg/dL Calcium (8.6-10.2) mg/dL Total Bilirubin (0.1-1.3) mg/dL AST (5-25) IU/L ALT (12-36) U/L Alkaline Phosphatase (56-112) IU/L C-Reactive Protein (0.5-0.9) mg/dL Total Protein (6.0-8.0) g/dL Albumin (3.2-4.6) g/dL Globulin g/dL Albumin/Globulin Ratio Urine Color Yellow Yellow (YELLOW) Urine Appearance Clear Clear (CLEAR) Urine pH 7.0 H 7.0 H (5.0-6.5) Ur Specific [place] 1.005 L 1.005 L (1.010-1.025) Urine Protein Negative Negative (NEGATIVE) mg/dL Urine Glucose (UA) Normal Normal (NORMAL) mg/dL Urine Ketones Negative Negative (NEGATIVE) mg/dL Urine Occult Blood Moderate H Moderate H (NEGATIVE) Urine Nitrite Negative Negative (NEGATIVE) Urine Bilirubin Negative Negative (NEGATIVE) Urine Urobilinogen Normal Normal (NEGATIVE) mg/dL Ur Leukocyte Esterase Negative Small H (NEGATIVE) Urine RBC 0-5 (0-5) Urine WBC 0-5 (0-5) Ur Squamous Epith Cells Few H (NS,R,O) Urine Bacteria Few H (NS) SARS-CoV-2 RNA (MARVIN) Negative (NEGATIVE) 07/16/20 07/16/20 Range/Units 06:28 06:28 WBC 9.8 (3.0-10.3) x10-3/uL RBC 4.02 (3.60-5.20) x10(6)uL Hgb 12.6 (11.4-15.5) g/dL Hct 37.9 (34.2-48.2) % MCV 94.2 (76.7-100.5) fL MCH 31.3 (23.9-33.9) pg MCHC 33.2 (31.9-34.8) g/dL RDW 13.7 (12.3-16.5) % Plt Count 238 (151-488) x10(3)uL MPV 7.8 (7.1-12.4) fL Neut % (Auto) 70.3 (30.8-76.2) % Lymph % (Auto) 17.6 L (18.4-52.1) % [place] % (Auto) 9.1 (4.4-15.7) % Eos % (Auto) 2.1 (0.6-8.1) % Baso % (Auto) 0.9 (0.2-1.5) % Neut # (Auto) 6.9 H (1.5-6.3) x10-3/uL Lymph # (Auto) 1.7 (1.0-4.4) x10-3/uL [place] # (Auto) 0.9 (0.3-1.0) x10-3/uL Eos # (Auto) 0.2 (0.0-0.8) x10-3/uL Baso # (Auto) 0.1 (0.0-0.1) x10-3/uL Sodium 142 (135-145) mmol/L Potassium 4.3 (3.5-5.3) mmol/L Chloride 107 D (100-110) mmol/L Carbon Dioxide 28 (21-32) mmol/L BUN 13 (7-18) mg/dL Creatinine 1.1 H (0.55-1.02) mg/dL Est Cr Clr Drug Dosing 30.80 Estimated GFR (MDRD) 47 L (>60) BUN/Creatinine Ratio 11.8 (9-20) Glucose 91 (80-116) mg/dL Calcium 8.7 (8.6-10.2) mg/dL Total Bilirubin 1.2 (0.1-1.3) mg/dL AST 18 (5-25) IU/L ALT 28 D (12-36) U/L Alkaline Phosphatase 102 (56-112) IU/L C-Reactive Protein (0.5-0.9) mg/dL Total Protein 5.8 L (6.0-8.0) g/dL Albumin 2.6 L (3.2-4.6) g/dL Globulin 3.2 g/dL Albumin/Globulin Ratio 0.8 Urine Color (YELLOW) Urine Appearance (CLEAR) Urine pH (5.0-6.5) Ur Specific [place] (1.010-1.025) Urine Protein (NEGATIVE) mg/dL Urine Glucose (UA) (NORMAL) mg/dL Urine Ketones (NEGATIVE) mg/dL Urine Occult Blood (NEGATIVE) Urine Nitrite (NEGATIVE) Urine Bilirubin (NEGATIVE) Urine Urobilinogen (NEGATIVE) mg/dL Ur Leukocyte Esterase (NEGATIVE) Urine RBC (0-5) Urine WBC (0-5) Ur Squamous Epith Cells (NS,R,O) Urine Bacteria (NS) SARS-CoV-2 RNA (MARVIN) (NEGATIVE) Med Orders - Current: Current Medications Hydrocodone Bitart/Acetaminophen (Acetaminophen/Hydrocodone 325-5 Mg Tab) 1 tab PO Q4H PRN PRN Reason: Pain (moderate 4-6) Enoxaparin Sodium (Enoxaparin 40 Mg/0.4 Ml Syringe) 40 mg SUBCUT Q24H [facility] Last Admin: 07/15/20 17:56 Dose: 40 mg Documented by: Piperacillin Sod/Tazobactam (Sod 3.375 gm/ Sodium Chloride) 50 mls @ 100 mls/hr IV Q6H [facility] Last Admin: 07/16/20 03:21 Dose: 100 mls/hr Documented by: Lactated Ringer's (Ringers, Lactated) 1,000 mls @ 100 mls/hr IV ASDIRECTED [facility] Last Admin: 07/16/20 04:01 Dose: 100 mls/hr Documented by: Magnesium Oxide (Magnesium Oxide 400 Mg Tab) 400 mg PO BEDTIME [facility] Last Admin: 07/15/20 20:08 Dose: 400 mg Documented by: Melatonin (Melatonin 3 Mg Tab) 9 mg PO BEDTIME [facility] Last Admin: 07/15/20 20:08 Dose: 9 mg Documented by: Multivitamins/Minerals/Vitamin C (Multivitamin Tab) 1 tab PO DAILY FELIPA Ondansetron HCl (Ondansetron 4 Mg Tab.Dis) 4 mg PO Q4H PRN PRN Reason: nausea, able to take PO Prednisone (Prednisone 20 Mg Tab) 20 mg PO DAILY [facility] Saccharomyces Boulardii (Saccharomyces Boulardii (Probiotic) 250 Mg Cap) 250 mg PO BEDTIME [facility] Last Admin: 07/15/20 20:08 Dose: 250 mg Documented by: Sodium Chloride (Sodium Chloride 0.9% 10 Ml Syringe) 10 ml FLUSH ASDIRECTED PRN PRN Reason: Keep Vein Open Last Admin: 07/16/20 03:22 Dose: 10 ml Documented by: Discontinued Medications Sodium Chloride (Normal Saline) 1,000 mls @ 999 mls/hr IV .BOLUS ONE Stop: 07/15/20 14:27 Last Admin: 07/15/20 14:00 Dose: 999 mls/hr Documented by: Sodium Chloride (Normal Saline) 1,000 mls @ 999 mls/hr IV .BOLUS ONE Stop: 07/15/20 15:08 Last Admin: 07/15/20 15:26 Dose: Not Given Documented by: Iopamidol (Iopamidol 755 Mg/Ml 75 Ml Bottle) 75 ml IV ASDIRECTED ONE Stop: 07/15/20 14:09 Last Admin: 07/15/20 14:11 Dose: 75 ml Documented by: Ketorolac Tromethamine (Ketorolac 30 Mg/Ml Sdv) 15 mg IVPUSH ONETIME ONE Stop: 07/15/20 13:29 Last Admin: 07/15/20 13:56 Dose: 15 mg Documented by: Non-Formulary Medication (Melatonin [Melatonin]) 10 mg PO BEDTIME FELIPA Ondansetron HCl (Ondansetron 4 Mg/2 Ml Sdv) 4 mg IVPUSH ONETIME ONE Stop: 07/15/20 13:31 Last Admin: 07/15/20 13:53 Dose: 4 mg Documented by: - Exam General: Alert, Oriented Lungs: Normal Respiratory Effort GI/Abdominal Exam: Other (Abdomen soft with normal bowel sounds. Mild pain left lower quadrant without rebound or guarding.) - Patient Data Lab Results Last 24 hrs: Laboratory Results - last 24 hr 07/15/20 07/15/20 07/15/20 Range/Units 13:04 13:04 13:04 WBC 16.6 H (3.0-10.3) x10-3/uL RBC 4.44 (3.60-5.20) x10(6)uL Hgb 13.9 (11.4-15.5) g/dL Hct 42.0 (34.2-48.2) % MCV 94.6 (76.7-100.5) fL MCH 31.3 (23.9-33.9) pg MCHC 33.1 (31.9-34.8) g/dL RDW 13.5 (12.3-16.5) % Plt Count 293 (151-488) x10(3)uL MPV 8.1 (7.1-12.4) fL Neut % (Auto) 82.4 H (30.8-76.2) % Lymph % (Auto) 8.5 L (18.4-52.1) % [place] % (Auto) 8.2 (4.4-15.7) % Eos % (Auto) 0.6 (0.6-8.1) % Baso % (Auto) 0.3 (0.2-1.5) % Neut # (Auto) 13.7 H (1.5-6.3) x10-3/uL Lymph # (Auto) 1.4 (1.0-4.4) x10-3/uL [place] # (Auto) 1.4 H (0.3-1.0) x10-3/uL Eos # (Auto) 0.1 (0.0-0.8) x10-3/uL Baso # (Auto) 0.0 (0.0-0.1) x10-3/uL Sodium 134 L (135-145) mmol/L Potassium 4.0 (3.5-5.3) mmol/L Chloride 99 L D (100-110) mmol/L Carbon Dioxide 27 (21-32) mmol/L BUN 21 H D (7-18) mg/dL Creatinine 1.0 (0.55-1.02) mg/dL Est Cr Clr Drug Dosing TNP Estimated GFR (MDRD) 53 L (>60) BUN/Creatinine Ratio 21.0 H (9-20) Glucose 121 H (80-116) mg/dL Calcium 8.5 L (8.6-10.2) mg/dL Total Bilirubin 1.1 (0.1-1.3) mg/dL AST 17 D (5-25) IU/L ALT 35 D (12-36) U/L Alkaline Phosphatase 114 H (56-112) IU/L C-Reactive Protein 6.5 H* (0.5-0.9) mg/dL Total Protein 6.6 (6.0-8.0) g/dL Albumin 3.2 (3.2-4.6) g/dL Globulin 3.4 g/dL Albumin/Globulin Ratio 0.9 Urine Color (YELLOW) Urine Appearance (CLEAR) Urine pH (5.0-6.5) Ur Specific [place] (1.010-1.025) Urine Protein (NEGATIVE) mg/dL Urine Glucose (UA) (NORMAL) mg/dL Urine Ketones (NEGATIVE) mg/dL Urine Occult Blood (NEGATIVE) Urine Nitrite (NEGATIVE) Urine Bilirubin (NEGATIVE) Urine Urobilinogen (NEGATIVE) mg/dL Ur Leukocyte Esterase (NEGATIVE) Urine RBC (0-5) Urine WBC (0-5) Ur Squamous Epith Cells (NS,R,O) Urine Bacteria (NS) SARS-CoV-2 RNA (MARVIN) (NEGATIVE) 07/15/20 07/15/20 07/16/20 Range/Units 15:00 15:40 06:20 WBC (3.0-10.3) x10-3/uL RBC (3.60-5.20) x10(6)uL Hgb (11.4-15.5) g/dL Hct (34.2-48.2) % MCV (76.7-100.5) fL MCH (23.9-33.9) pg MCHC (31.9-34.8) g/dL RDW (12.3-16.5) % Plt Count (151-488) x10(3)uL MPV (7.1-12.4) fL Neut % (Auto) (30.8-76.2) % Lymph % (Auto) (18.4-52.1) % [place] % (Auto) (4.4-15.7) % Eos % (Auto) (0.6-8.1) % Baso % (Auto) (0.2-1.5) % Neut # (Auto) (1.5-6.3) x10-3/uL Lymph # (Auto) (1.0-4.4) x10-3/uL [place] # (Auto) (0.3-1.0) x10-3/uL Eos # (Auto) (0.0-0.8) x10-3/uL Baso # (Auto) (0.0-0.1) x10-3/uL Sodium (135-145) mmol/L Potassium (3.5-5.3) mmol/L Chloride (100-110) mmol/L Carbon Dioxide (21-32) mmol/L BUN (7-18) mg/dL Creatinine (0.55-1.02) mg/dL Est Cr Clr Drug Dosing Estimated GFR (MDRD) (>60) BUN/Creatinine Ratio (9-20) Glucose (80-116) mg/dL Calcium (8.6-10.2) mg/dL Total Bilirubin (0.1-1.3) mg/dL AST (5-25) IU/L ALT (12-36) U/L Alkaline Phosphatase (56-112) IU/L C-Reactive Protein (0.5-0.9) mg/dL Total Protein (6.0-8.0) g/dL Albumin (3.2-4.6) g/dL Globulin g/dL Albumin/Globulin Ratio Urine Color Yellow Yellow (YELLOW) Urine Appearance Clear Clear (CLEAR) Urine pH 7.0 H 7.0 H (5.0-6.5) Ur Specific [place] 1.005 L 1.005 L (1.010-1.025) Urine Protein Negative Negative (NEGATIVE) mg/dL Urine Glucose (UA) Normal Normal (NORMAL) mg/dL Urine Ketones Negative Negative (NEGATIVE) mg/dL Urine Occult Blood Moderate H Moderate H (NEGATIVE) Urine Nitrite Negative Negative (NEGATIVE) Urine Bilirubin Negative Negative (NEGATIVE) Urine Urobilinogen Normal Normal (NEGATIVE) mg/dL Ur Leukocyte Esterase Negative Small H (NEGATIVE) Urine RBC 0-5 (0-5) Urine WBC 0-5 (0-5) Ur Squamous Epith Cells Few H (NS,R,O) Urine Bacteria Few H (NS) SARS-CoV-2 RNA (AMRVIN) Negative (NEGATIVE) 07/16/20 07/16/20 Range/Units 06:28 06:28 WBC 9.8 (3.0-10.3) x10-3/uL RBC 4.02 (3.60-5.20) x10(6)uL Hgb 12.6 (11.4-15.5) g/dL Hct 37.9 (34.2-48.2) % MCV 94.2 (76.7-100.5) fL MCH 31.3 (23.9-33.9) pg MCHC 33.2 (31.9-34.8) g/dL RDW 13.7 (12.3-16.5) % Plt Count 238 (151-488) x10(3)uL MPV 7.8 (7.1-12.4) fL Neut % (Auto) 70.3 (30.8-76.2) % Lymph % (Auto) 17.6 L (18.4-52.1) % [place] % (Auto) 9.1 (4.4-15.7) % Eos % (Auto) 2.1 (0.6-8.1) % Baso % (Auto) 0.9 (0.2-1.5) % Neut # (Auto) 6.9 H (1.5-6.3) x10-3/uL Lymph # (Auto) 1.7 (1.0-4.4) x10-3/uL [place] # (Auto) 0.9 (0.3-1.0) x10-3/uL Eos # (Auto) 0.2 (0.0-0.8) x10-3/uL Baso # (Auto) 0.1 (0.0-0.1) x10-3/uL Sodium 142 (135-145) mmol/L Potassium 4.3 (3.5-5.3) mmol/L Chloride 107 D (100-110) mmol/L Carbon Dioxide 28 (21-32) mmol/L BUN 13 (7-18) mg/dL Creatinine 1.1 H (0.55-1.02) mg/dL Est Cr Clr Drug Dosing 30.80 Estimated GFR (MDRD) 47 L (>60) BUN/Creatinine Ratio 11.8 (9-20) Glucose 91 (80-116) mg/dL Calcium 8.7 (8.6-10.2) mg/dL Total Bilirubin 1.2 (0.1-1.3) mg/dL AST 18 (5-25) IU/L ALT 28 D (12-36) U/L Alkaline Phosphatase 102 (56-112) IU/L C-Reactive Protein (0.5-0.9) mg/dL Total Protein 5.8 L (6.0-8.0) g/dL Albumin 2.6 L (3.2-4.6) g/dL Globulin 3.2 g/dL Albumin/Globulin Ratio 0.8 Urine Color (YELLOW) Urine Appearance (CLEAR) Urine pH (5.0-6.5) Ur Specific [place] (1.010-1.025) Urine Protein (NEGATIVE) mg/dL Urine Glucose (UA) (NORMAL) mg/dL Urine Ketones (NEGATIVE) mg/dL Urine Occult Blood (NEGATIVE) Urine Nitrite (NEGATIVE) Urine Bilirubin (NEGATIVE) Urine Urobilinogen (NEGATIVE) mg/dL Ur Leukocyte Esterase (NEGATIVE) Urine RBC (0-5) Urine WBC (0-5) Ur Squamous Epith Cells (NS,R,O) Urine Bacteria (NS) SARS-CoV-2 RNA (MARVIN) (NEGATIVE) Result Diagrams: 07/16/20 06:28 07/16/20 06:28 Sepsis Event Note - Evaluation Sepsis Screening Result: No Definite Risk - Focused Exam Vital Signs: Vital Signs Temp Pulse Resp BP Pulse Ox 07/16/20 07:20 98.2 F 78 16 111/52 L 97 - Problem List & Annotations (1) Palliative care status SNOMED Code(s): 767435832 Code(s): Z51.5 - ENCOUNTER FOR PALLIATIVE CARE Status: Acute Current Visit: Yes (2) Acute diverticulitis SNOMED Code(s): 858964981 Code(s): K57.92 - DVTRCLI OF INTEST, PART UNSP, W/O PERF OR ABSCESS W/O BLEED Status: Acute Current Visit: Yes (3) Acute peritonitis SNOMED Code(s): 57459236 Code(s): K65.0 - GENERALIZED (ACUTE) PERITONITIS Status: Acute Current Visit: Yes (4) Elevated C-reactive protein (CRP) SNOMED Code(s): 754195522277564 Code(s): R79.82 - ELEVATED C-REACTIVE PROTEIN (CRP) Status: Acute Current Visit: Yes (5) Hyponatremia SNOMED Code(s): 73626146 Code(s): E87.1 - HYPO-OSMOLALITY AND HYPONATREMIA Status: Acute Current Visit: Yes - Problem List Review Problem List Initiated/Reviewed/Updated: Yes - My Orders Last 24 Hours: My Active Orders 07/15/20 Dinner Full Liquid Diet [DIET] 07/15/20 17:15 Patient Status [ADT] Routine Height and Weight [RC] 06 Oxygen Therapy [RC] PRN Up With Assistance [RC] ASDIRECTED VTE/DVT Education [RC] Per Unit Routine Vital Signs [RC] QSHIFT Acetaminophen/HYDROcodone [[place] 325-5 MG] 1 tab PO Q4H PRN Lactated Ringers [Ringers, Lactated] 1,000 ml IV ASDIRECTED Ondansetron [Zofran ODT] 4 mg PO Q4H PRN Sodium Chloride 0.9% [Saline Flush] 10 ml FLUSH ASDIRECTED PRN Peripheral IV Insertion Adult [OM.PC] Routine Resuscitation Status Routine 07/15/20 17:16 Intake and Output [RC] 06,14,22 07/15/20 17:17 Sequential Compression Device [OM.PC] Per Unit Routine 07/15/20 18:00 Enoxaparin [Lovenox] 40 mg SUBCUT Q24H 07/15/20 21:00 Magnesium Oxide 400 mg PO BEDTIME Saccharomyces Boulardii [Florastor] 250 mg PO BEDTIME 07/16/20 09:00 Multivitamins [Tab-A-[place]] 1 tab PO DAILY predniSONE 20 mg PO DAILY - Plan Plan:: 1. Patient's made a remarkable recovery with normalizing of her white count. We'll discharge to home on Augmentin and some Tylenol No. 3 is for pain. 2. Discussed her living conditions. She says [place]. She strong and has no need for home health or any services at this time.
--- NOTE | 2020-07-16 08:30 | PCM.DCSUM1 ---
Discharge Summary - Hospital Course Free Text/Narrative:: Hospital course-patient was placed on Zosyn, IV fluids, clear liquids and hydrocodone for pain. She did well over the night and her white count by the morning was normal. She has a little bit of hyponatremia and that corrected also. Patient's pain was much better in the morning. She did not much of appetite she was drinking plenty fluids and wanted to go home. I felt since her white count was normal and she is feels much better and reviewed her CT that was okay. I'll discharge her home on Tylenol 3 for pain and Augmentin 500 mg 3 times a day for 10 days. Discussed diet and I told her to use high fiber. Brief History: This is an 84-year-old female patient presents to the ER with lower quadrant abdominal pain. Patient's had many bouts of diverticulitis in the past. She had one episode of vomiting. She says she vomits when she has a lot of pain. She denies constipation, diarrhea, blood in her stool. The patient states the pain is sharp and left lower quadrant. She denies fevers or chills. She denies runny nose, sore throat, cough, chest pain. She denies urinary symptoms or vaginal symptoms. Diagnosis: Stroke: No - Discharge Data Discharge Date: 07/16/20 Discharge Disposition: Home, Self-Care 01 Condition: Good - Referral to Home Health Primary Care Physician: Baron Quiñones MD - Discharge Diagnosis/Problem(s) (1) Palliative care status SNOMED Code(s): 183838424 ICD Code: Z51.5 - ENCOUNTER FOR PALLIATIVE CARE Status: Acute Current Visit: Yes (2) Acute diverticulitis SNOMED Code(s): 271635703 ICD Code: K57.92 - DVTRCLI OF INTEST, PART UNSP, W/O PERF OR ABSCESS W/O BLEED Status: Acute Current Visit: Yes (3) Acute peritonitis SNOMED Code(s): 93116123 ICD Code: K65.0 - GENERALIZED (ACUTE) PERITONITIS Status: Acute Current Visit: Yes (4) Elevated C-reactive protein (CRP) SNOMED Code(s): 228291983200067 ICD Code: R79.82 - ELEVATED C-REACTIVE PROTEIN (CRP) Status: Acute Current Visit: Yes (5) Hyponatremia SNOMED Code(s): 82527089 ICD Code: E87.1 - HYPO-OSMOLALITY AND HYPONATREMIA Status: Acute Current Visit: Yes - Patient Instructions Diet: Regular Diet as Tolerated Activity: As Tolerated Driving: May Drive Today Showering/Bathing: May Shower Notify Provider of: Fever, Increased Pain, Nausea and/or Vomiting Other/Special Instructions: 1. Recheck with Dr. Quiñones in 1 week. 2. High- fiber diet. - Discharge Plan *PRESCRIPTION DRUG MONITORING PROGRAM REVIEWED*: Not Applicable *COPY OF PRESCRIPTION DRUG MONITORING REPORT IN PATIENT JAIME: Not Applicable Prescriptions/Med Rec: Amoxicillin/Potassium Clav [Augmentin 500-125 Tablet] 1 each PO TID #30 tablet Acetaminophen/Codeine [Tylenol with Codeine No.3 300MG/30MG] 1 tab PO Q4H PRN #12 tab PRN Reason: Pain Home Medications: Home Meds Magnesium Oxide 400 mg PO BEDTIME 11/13/19 [History] Melatonin 10 mg PO BEDTIME 11/13/19 [History] predniSONE [Prednisone] 20 mg PO DAILY 11/13/19 [History] Multivitamin [Multivitamins] 1 each PO DAILY 07/15/20 [History] Saccharomyces Boulardii [Florastor] 250 mg PO BEDTIME 07/15/20 [History] Acetaminophen/Codeine [Tylenol with Codeine No.3 300MG/30MG] 1 tab PO Q4H PRN #12 tab 07/16/20 [Rx] Amoxicillin/Potassium Clav [Augmentin 500-125 Tablet] 1 each PO TID #30 tablet 07/16/20 [Rx] Forms: ED Department Discharge Referrals: Baron Quiñones MD [Primary Care Provider] - - Discharge Summary/Plan Comment DC Time >30 min.: No - Patient Data Vitals - Most Recent: Last Vital Signs Temp 98.2 F 07/16/20 07:20 Pulse 78 07/16/20 07:20 Resp 16 07/16/20 07:20 BP 111/52 L 07/16/20 07:20 Pulse Ox 97 07/16/20 07:20 Weight - Most Recent: 148 lb 3.2 oz I&O - Last 24 hours: Intake & Output 07/15/20 07/16/20 07/16/20 22:59 06:59 14:59 Intake Total 425 730 Output Total 650 800 Balance -225 -70 Lab Results - Last 24 hrs: Laboratory Results - last 24 hr 07/15/20 07/15/20 07/15/20 Range/Units 13:04 13:04 13:04 WBC 16.6 H (3.0-10.3) x10-3/uL RBC 4.44 (3.60-5.20) x10(6)uL Hgb 13.9 (11.4-15.5) g/dL Hct 42.0 (34.2-48.2) % MCV 94.6 (76.7-100.5) fL MCH 31.3 (23.9-33.9) pg MCHC 33.1 (31.9-34.8) g/dL RDW 13.5 (12.3-16.5) % Plt Count 293 (151-488) x10(3)uL MPV 8.1 (7.1-12.4) fL Neut % (Auto) 82.4 H (30.8-76.2) % Lymph % (Auto) 8.5 L (18.4-52.1) % Rice % (Auto) 8.2 (4.4-15.7) % Eos % (Auto) 0.6 (0.6-8.1) % Baso % (Auto) 0.3 (0.2-1.5) % Neut # (Auto) 13.7 H (1.5-6.3) x10-3/uL Lymph # (Auto) 1.4 (1.0-4.4) x10-3/uL Rice # (Auto) 1.4 H (0.3-1.0) x10-3/uL Eos # (Auto) 0.1 (0.0-0.8) x10-3/uL Baso # (Auto) 0.0 (0.0-0.1) x10-3/uL Sodium 134 L (135-145) mmol/L Potassium 4.0 (3.5-5.3) mmol/L Chloride 99 L D (100-110) mmol/L Carbon Dioxide 27 (21-32) mmol/L BUN 21 H D (7-18) mg/dL Creatinine 1.0 (0.55-1.02) mg/dL Est Cr Clr Drug Dosing TNP Estimated GFR (MDRD) 53 L (>60) BUN/Creatinine Ratio 21.0 H (9-20) Glucose 121 H (80-116) mg/dL Calcium 8.5 L (8.6-10.2) mg/dL Total Bilirubin 1.1 (0.1-1.3) mg/dL AST 17 D (5-25) IU/L ALT 35 D (12-36) U/L Alkaline Phosphatase 114 H (56-112) IU/L C-Reactive Protein 6.5 H* (0.5-0.9) mg/dL Total Protein 6.6 (6.0-8.0) g/dL Albumin 3.2 (3.2-4.6) g/dL Globulin 3.4 g/dL Albumin/Globulin Ratio 0.9 Urine Color (YELLOW) Urine Appearance (CLEAR) Urine pH (5.0-6.5) Ur Specific [place] (1.010-1.025) Urine Protein (NEGATIVE) mg/dL Urine Glucose (UA) (NORMAL) mg/dL Urine Ketones (NEGATIVE) mg/dL Urine Occult Blood (NEGATIVE) Urine Nitrite (NEGATIVE) Urine Bilirubin (NEGATIVE) Urine Urobilinogen (NEGATIVE) mg/dL Ur Leukocyte Esterase (NEGATIVE) Urine RBC (0-5) Urine WBC (0-5) Ur Squamous Epith Cells (NS,R,O) Urine Bacteria (NS) SARS-CoV-2 RNA (MARVIN) (NEGATIVE) 07/15/20 07/15/20 07/16/20 Range/Units 15:00 15:40 06:20 WBC (3.0-10.3) x10-3/uL RBC (3.60-5.20) x10(6)uL Hgb (11.4-15.5) g/dL Hct (34.2-48.2) % MCV (76.7-100.5) fL MCH (23.9-33.9) pg MCHC (31.9-34.8) g/dL RDW (12.3-16.5) % Plt Count (151-488) x10(3)uL MPV (7.1-12.4) fL Neut % (Auto) (30.8-76.2) % Lymph % (Auto) (18.4-52.1) % Rice % (Auto) (4.4-15.7) % Eos % (Auto) (0.6-8.1) % Baso % (Auto) (0.2-1.5) % Neut # (Auto) (1.5-6.3) x10-3/uL Lymph # (Auto) (1.0-4.4) x10-3/uL Rice # (Auto) (0.3-1.0) x10-3/uL Eos # (Auto) (0.0-0.8) x10-3/uL Baso # (Auto) (0.0-0.1) x10-3/uL Sodium (135-145) mmol/L Potassium (3.5-5.3) mmol/L Chloride (100-110) mmol/L Carbon Dioxide (21-32) mmol/L BUN (7-18) mg/dL Creatinine (0.55-1.02) mg/dL Est Cr Clr Drug Dosing Estimated GFR (MDRD) (>60) BUN/Creatinine Ratio (9-20) Glucose (80-116) mg/dL Calcium (8.6-10.2) mg/dL Total Bilirubin (0.1-1.3) mg/dL AST (5-25) IU/L ALT (12-36) U/L Alkaline Phosphatase (56-112) IU/L C-Reactive Protein (0.5-0.9) mg/dL Total Protein (6.0-8.0) g/dL Albumin (3.2-4.6) g/dL Globulin g/dL Albumin/Globulin Ratio Urine Color Yellow Yellow (YELLOW) Urine Appearance Clear Clear (CLEAR) Urine pH 7.0 H 7.0 H (5.0-6.5) Ur Specific [place] 1.005 L 1.005 L (1.010-1.025) Urine Protein Negative Negative (NEGATIVE) mg/dL Urine Glucose (UA) Normal Normal (NORMAL) mg/dL Urine Ketones Negative Negative (NEGATIVE) mg/dL Urine Occult Blood Moderate H Moderate H (NEGATIVE) Urine Nitrite Negative Negative (NEGATIVE) Urine Bilirubin Negative Negative (NEGATIVE) Urine Urobilinogen Normal Normal (NEGATIVE) mg/dL Ur Leukocyte Esterase Negative Small H (NEGATIVE) Urine RBC 0-5 (0-5) Urine WBC 0-5 (0-5) Ur Squamous Epith Cells Few H (NS,R,O) Urine Bacteria Few H (NS) SARS-CoV-2 RNA (MARVIN) Negative (NEGATIVE) 07/16/20 07/16/20 Range/Units 06:28 06:28 WBC 9.8 (3.0-10.3) x10-3/uL RBC 4.02 (3.60-5.20) x10(6)uL Hgb 12.6 (11.4-15.5) g/dL Hct 37.9 (34.2-48.2) % MCV 94.2 (76.7-100.5) fL MCH 31.3 (23.9-33.9) pg MCHC 33.2 (31.9-34.8) g/dL RDW 13.7 (12.3-16.5) % Plt Count 238 (151-488) x10(3)uL MPV 7.8 (7.1-12.4) fL Neut % (Auto) 70.3 (30.8-76.2) % Lymph % (Auto) 17.6 L (18.4-52.1) % Rice % (Auto) 9.1 (4.4-15.7) % Eos % (Auto) 2.1 (0.6-8.1) % Baso % (Auto) 0.9 (0.2-1.5) % Neut # (Auto) 6.9 H (1.5-6.3) x10-3/uL Lymph # (Auto) 1.7 (1.0-4.4) x10-3/uL Rice # (Auto) 0.9 (0.3-1.0) x10-3/uL Eos # (Auto) 0.2 (0.0-0.8) x10-3/uL Baso # (Auto) 0.1 (0.0-0.1) x10-3/uL Sodium 142 (135-145) mmol/L Potassium 4.3 (3.5-5.3) mmol/L Chloride 107 D (100-110) mmol/L Carbon Dioxide 28 (21-32) mmol/L BUN 13 (7-18) mg/dL Creatinine 1.1 H (0.55-1.02) mg/dL Est Cr Clr Drug Dosing 30.80 Estimated GFR (MDRD) 47 L (>60) BUN/Creatinine Ratio 11.8 (9-20) Glucose 91 (80-116) mg/dL Calcium 8.7 (8.6-10.2) mg/dL Total Bilirubin 1.2 (0.1-1.3) mg/dL AST 18 (5-25) IU/L ALT 28 D (12-36) U/L Alkaline Phosphatase 102 (56-112) IU/L C-Reactive Protein (0.5-0.9) mg/dL Total Protein 5.8 L (6.0-8.0) g/dL Albumin 2.6 L (3.2-4.6) g/dL Globulin 3.2 g/dL Albumin/Globulin Ratio 0.8 Urine Color (YELLOW) Urine Appearance (CLEAR) Urine pH (5.0-6.5) Ur Specific [place] (1.010-1.025) Urine Protein (NEGATIVE) mg/dL Urine Glucose (UA) (NORMAL) mg/dL Urine Ketones (NEGATIVE) mg/dL Urine Occult Blood (NEGATIVE) Urine Nitrite (NEGATIVE) Urine Bilirubin (NEGATIVE) Urine Urobilinogen (NEGATIVE) mg/dL Ur Leukocyte Esterase (NEGATIVE) Urine RBC (0-5) Urine WBC (0-5) Ur Squamous Epith Cells (NS,R,O) Urine Bacteria (NS) SARS-CoV-2 RNA (MARVIN) (NEGATIVE) Med Orders - Current: Current Medications Hydrocodone Bitart/Acetaminophen (Acetaminophen/Hydrocodone 325-5 Mg Tab) 1 tab PO Q4H PRN PRN Reason: Pain (moderate 4-6) Enoxaparin Sodium (Enoxaparin 40 Mg/0.4 Ml Syringe) 40 mg SUBCUT Q24H [facility] Last Admin: 07/15/20 17:56 Dose: 40 mg Documented by: Piperacillin Sod/Tazobactam (Sod 3.375 gm/ Sodium Chloride) 50 mls @ 100 mls/hr IV Q6H [facility] Last Admin: 07/16/20 03:21 Dose: 100 mls/hr Documented by: Lactated Ringer's (Ringers, Lactated) 1,000 mls @ 100 mls/hr IV ASDIRECTED [facility] Last Admin: 07/16/20 04:01 Dose: 100 mls/hr Documented by: Magnesium Oxide (Magnesium Oxide 400 Mg Tab) 400 mg PO BEDTIME [facility] Last Admin: 07/15/20 20:08 Dose: 400 mg Documented by: Melatonin (Melatonin 3 Mg Tab) 9 mg PO BEDTIME [facility] Last Admin: 07/15/20 20:08 Dose: 9 mg Documented by: Multivitamins/Minerals/Vitamin C (Multivitamin Tab) 1 tab PO DAILY [facility] Ondansetron HCl (Ondansetron 4 Mg Tab.Dis) 4 mg PO Q4H PRN PRN Reason: nausea, able to take PO Prednisone (Prednisone 20 Mg Tab) 20 mg PO DAILY [facility] Saccharomyces Boulardii (Saccharomyces Boulardii (Probiotic) 250 Mg Cap) 250 mg PO BEDTIME [facility] Last Admin: 07/15/20 20:08 Dose: 250 mg Documented by: Sodium Chloride (Sodium Chloride 0.9% 10 Ml Syringe) 10 ml FLUSH ASDIRECTED PRN PRN Reason: Keep Vein Open Last Admin: 07/16/20 03:22 Dose: 10 ml Documented by: Discontinued Medications Sodium Chloride (Normal Saline) 1,000 mls @ 999 mls/hr IV .BOLUS ONE Stop: 07/15/20 14:27 Last Admin: 07/15/20 14:00 Dose: 999 mls/hr Documented by: Sodium Chloride (Normal Saline) 1,000 mls @ 999 mls/hr IV .BOLUS ONE Stop: 07/15/20 15:08 Last Admin: 07/15/20 15:26 Dose: Not Given Documented by: Iopamidol (Iopamidol 755 Mg/Ml 75 Ml Bottle) 75 ml IV ASDIRECTED ONE Stop: 07/15/20 14:09 Last Admin: 07/15/20 14:11 Dose: 75 ml Documented by: Ketorolac Tromethamine (Ketorolac 30 Mg/Ml Sdv) 15 mg IVPUSH ONETIME ONE Stop: 07/15/20 13:29 Last Admin: 07/15/20 13:56 Dose: 15 mg Documented by: Non-Formulary Medication (Melatonin [Melatonin]) 10 mg PO BEDTIME [facility]IP[facility] Ondansetron HCl (Ondansetron 4 Mg/2 Ml Sdv) 4 mg IVPUSH ONETIME ONE Stop: 07/15/20 13:31 Last Admin: 07/15/20 13:53 Dose: 4 mg Documented by:
[2020-07-16] MEDS ORDERED: Multivitamin Tab PO SCH (09:00)
[2020-07-16] MEDS ORDERED: predniSONE 20 MG Tab PO SCH (09:00)
== END 2020-07-16 09:45 | disposition home or self-care (01) | DRG 391 ==
LOC: FB.ED 12:49 → FB.MS 16:34
PROVIDERS: ADMIT Emergency Medicine; ATTEND Family Medicine
DX: K57.80 Diverticulitis of intestine, part unspecified, with perforation and abscess without bleeding (principal); H54.7 Unspecified visual loss; K57.92 Diverticulitis of intestine, part unspecified, without perforation or abscess without bleeding; K65.0 Generalized (acute) peritonitis; K58.9 Irritable bowel syndrome, unspecified; E87.1 Hypo-osmolality and hyponatremia; M35.3 Polymyalgia rheumatica; Z51.5 Encounter for palliative care; E78.00 Pure hypercholesterolemia, unspecified; K21.9 Gastro-esophageal reflux disease without esophagitis; K57.90 Diverticulosis of intestine, part unspecified, without perforation or abscess without bleeding; M79.7 Fibromyalgia; Z20.822 Contact with and (suspected) exposure to COVID-19; Z66 Do not resuscitate; Z88.7 Allergy status to serum and vaccine; Z79.52 Long term (current) use of systemic steroids; Z79.899 Other long term (current) drug therapy; Z98.49 Cataract extraction status, unspecified eye; Z90.49 Acquired absence of other specified parts of digestive tract
CPT/HCPCS: 36415; 74177; 80053; 81001; 81003; 85025; 86140; 93005; A9270-GY; J1650; J1885; J2405; J2543; J7030; J7120; J7512; Q9967; U0002

== ENCOUNTER 2024-07-08 07:25 | Emergency (ER) | payer MEDICARE, BC ==
[2024-07-08 07:54] LABS: BILIRUBIN,URINE NEGATIVE (NEGATIVE); GLUCOSE,URINE NORMAL (NORMAL); KETONES,URINE NEGATIVE (NEGATIVE); LEUKOCYTE ESTERASE,URINE LARGE (NEGATIVE); NITRITE,URINE POSITIVE (NEGATIVE); OCCULT BLOOD,URINE LARGE (NEGATIVE); PROTEIN,URINE 100 mg/dL (NEGATIVE); UROBILINOGEN,URINE NORMAL (NEGATIVE)
[2024-07-08 08:00] LABS: APPEARANCE,URINE CLOUDY (CLEAR); COLOR,URINE YELLOW (YELLOW)
[2024-07-08 08:01] LABS: BACTERIA,URINE MANY (NS); RBC,URINE 75-100 (0-5); SQUAMOUS EPITHELIAL CELLS,UR OCCASIONAL (NS,R,O); WBC,URINE 75-100 (0-5)
[2024-07-08] MEDS ORDERED: Sodium Chloride 0.9% 10 ML Syringe FLUSH PRN (08:31)
[2024-07-08 08:56] LABS: BASOPHILS PERCENT AUTO 0.4 % (0.2-1.5); EOSINOPHILS ABSOLUTE AUTO 0.1 x10-3/uL (0.0-0.8); EOSINOPHILS PERCENT AUTO 1.2 % (0.6-8.1); HEMATOCRIT 37.1 % (34.2-48.2); HEMOGLOBIN 12.7 g/dL (11.4-15.5); LYMPHOCYTES ABSOLUTE AUTO 0.8 x10-3/uL (1.0-4.4); LYMPHOCYTES PERCENT AUTO 12.9 % (18.4-52.1); MEAN CORPUSCULAR HEMOGLOBIN 32.4 pg (23.9-33.9); MEAN CORPUSCULAR HGB CONC 34.2 g/dL (31.9-34.8); MEAN CORPUSCULAR VOLUME 94.7 fL (76.7-100.5); MONOCYTES ABSOLUTE AUTO 0.4 x10-3/uL (0.3-1.0); MONOCYTES PERCENT AUTO 6.9 % (4.4-15.7); NEUTROPHILS ABSOLUTE AUTO 5.1 x10-3/uL (1.5-6.3); NEUTROPHILS PERCENT AUTO 78.6 % (30.8-76.2); PLATELET COUNT,PLT 149 x10(3)uL (151-488); RED BLOOD CELL COUNT 3.92 x10(6)uL (3.60-5.20); RED CELL DISTRIBUTION WIDTH 13.5 % (12.3-16.5); WHITE BLOOD CELL COUNT,WBC 6.4 x10-3/uL (3.0-10.3)
[2024-07-08] MEDS: Sodium Chloride 0.9% 1,000 ML IV SCH (08:57)
[2024-07-08] MEDS: methylPREDNISolone Sodium Succinate 125 MG/2 ML SDV IVPUSH ONE (08:58)
[2024-07-08] MEDS: Ketorolac 30 MG/ML SDV IVPUSH ONE (08:58)
[2024-07-08] MEDS: cefTRIAXone 1 GM Vial IVPUSH STA (08:59)
[2024-07-08 09:02] LABS: BLOOD UREA NITROGEN,BUN 12 mg/dL (7-18); BUN/CREATININE RATIO 10.9 (9-20); CALCIUM 8.3 mg/dL (8.6-10.2); CARBON DIOXIDE,CO2 25 mmol/L (21-32); CHLORIDE,CL 104 mmol/L (100-110); CREATININE 1.1 mg/dL (0.55-1.02); EST CRCL DRUG DOSING (CG) 29.24 mL/min; ESTIMATED GFR 48 mL/min (>60); GLUCOSE RANDOM 95 mg/dL (80-116); POTASSIUM,K 4.5 mmol/L (3.5-5.3); SODIUM,NA 137 mmol/L (135-145)
[2024-07-08 09:07] LABS: A/G RATIO 0.9; ALANINE AMINOTRANSFERASE,ALT 14 U/L (12-36); ALBUMIN 3.2 g/dL (3.2-4.6); ALKALINE PHOSPHATASE 65 IU/L (56-112); ASPARTATE AMNIOTRANSFERASE,AST 19 IU/L (5-25); BILIRUBIN TOTAL 0.5 mg/dL (0.1-1.3); PROTEIN TOTAL,TP 6.6 g/dL (6.0-8.0)
[2024-07-08 09:11] LABS: LACTIC ACID 0.7 mmol/L (0.4-2.0)
== END 2024-07-08 10:00 | disposition home or self-care (01) ==
LOC: FB.ED 07:25
DX: N39.0 Urinary tract infection, site not specified (principal); M79.7 Fibromyalgia; E78.00 Pure hypercholesterolemia, unspecified; Z79.899 Other long term (current) drug therapy; Z88.7 Allergy status to serum and vaccine; Z90.49 Acquired absence of other specified parts of digestive tract
CPT/HCPCS: 36415; 80053; 81001; 83605; 85025; 87086; 87088; 87186; 87428; 96361; 96374; 96375; 99283; 99284; J0696; J1885; J2919; J7030